=== PATIENT | male | born 1975 | race American Indian/Alaskan Native ===

== ENCOUNTER 2016-10-12 19:00 | Emergency (ER) | payer MEDICAID ==
--- NOTE | 2016-10-12 20:48 | Emergency Department Report ---
ED Psych HPI - General Chief Complaint: Psych Stated Complaint: MH EVAL/DELUSIONAL Time Seen by Provider: 10/12/16 20:47 Source: patient, EMS Mode of arrival: Stretcher - History of Present Illness Initial Comments: Patient is a 41-year-old male past medical history of schizophrenia who presents with suicidal ideation and hallucinations. Patient states that when he was at his psych hospital. He became aggressive towards staff. He states that the staff were [place] in home and did not want him at the hospital. He states that he wants to hurt those who looked down. He is actively hearing voices and he states that he is suicidal. Patient denies ingesting any substances. He states that he once to kill all the people who work at the hospital with his fists - Related Data Home Medications Medication Instructions Recorded Confirmed Last Taken Acetaminophen 650 mg PO Q6H PRN 10/12/16 10/12/16 Unknown Acetaminophen [Acetaminophen 650 mg MD Q8HR PRN 10/12/16 10/12/16 Unknown SUPPOS] Amlodipine Besylate [Norvasc] 5 mg PO DAILY 10/12/16 10/12/16 Unknown AtorvaSTATin [Lipitor] 10 mg PO QHS 10/12/16 10/12/16 Unknown Benztropine [Cogentin] 2 mg PO QHS 10/12/16 10/12/16 Unknown FLUoxetine [PROzac] 20 mg PO QDAY 10/12/16 10/12/16 Unknown Haloperidol Decanoate [Haldol 1.5 ml IM QMONTH 10/12/16 10/12/16 Unknown Decanoate] LORazepam [Ativan] 1 mg PO Q8H PRN 10/12/16 10/12/16 Unknown Lisinopril [Zestril TAB] 10 mg PO QDAY 10/12/16 10/12/16 Unknown Mirtazapine [Remeron] 30 mg PO QHS 10/12/16 10/12/16 Unknown Multivit-Minerals/Ferrous Gluc 9 mg PO BID 10/12/16 10/12/16 Unknown [Centrum Multivit-Mineral Liq] Omeprazole Magnesium [PriLOSEC Otc] 20 mg PO QDAY 10/12/16 10/12/16 Unknown QUEtiapine [SEROquel] 75 mg PO BID 10/12/16 10/12/16 Unknown Quetiapine Fumarate [SEROquel] 150 mg PO QDAY 10/12/16 10/12/16 Unknown Ziprasidone [Geodon] 40 mg PO BID 10/12/16 10/12/16 Unknown clonazePAM [KlonoPIN] 0.5 mg PO BID 10/12/16 10/12/16 Unknown Allergies Allergy/AdvReac Type Severity Reaction Status Date / Time No Known Allergies Allergy Unverified 10/13/16 01:02 ED Review of Systems ROS: Stated complaint: MH EVAL/DELUSIONAL Other details as noted in HPI Constitutional: denies: chills, fever Eyes: denies: eye pain, eye discharge, vision change ENT: denies: ear pain, throat pain Respiratory: denies: cough, shortness of breath, wheezing Cardiovascular: denies: chest pain, palpitations Endocrine: no symptoms reported Gastrointestinal: denies: abdominal pain, nausea, diarrhea Genitourinary: denies: urgency, dysuria Musculoskeletal: denies: back pain, joint swelling, arthralgia Skin: denies: rash, lesions Neurological: denies: headache, weakness, paresthesias Psychiatric: auditory hallucinations, homicidal thoughts, suicidal thoughts. denies: anxiety, depression Hematological/Lymphatic: denies: easy bleeding, easy bruising ED Past Medical Hx - Past Medical History Hx Hypertension: Yes Hx Psychiatric Treatment: Yes (paranoid disorder, anxiety) - Surgical History Past Surgical History?: No - Social History Smoking Status: Current Every Day Smoker Substance Use Type: Alcohol, Cocaine, Other - Medications Home Medications: Home Medications Medication Instructions Recorded Confirmed Last Taken Type Acetaminophen 650 mg PO Q6H PRN 10/12/16 10/12/16 Unknown History Acetaminophen [Acetaminophen 650 mg MD Q8HR PRN 10/12/16 10/12/16 Unknown History SUPPOS] Amlodipine Besylate [Norvasc] 5 mg PO DAILY 10/12/16 10/12/16 Unknown History AtorvaSTATin [Lipitor] 10 mg PO QHS 10/12/16 10/12/16 Unknown History Benztropine [Cogentin] 2 mg PO QHS 10/12/16 10/12/16 Unknown History FLUoxetine [PROzac] 20 mg PO QDAY 10/12/16 10/12/16 Unknown History Haloperidol Decanoate [Haldol 1.5 ml IM QMONTH 10/12/16 10/12/16 Unknown History Decanoate] LORazepam [Ativan] 1 mg PO Q8H PRN 10/12/16 10/12/16 Unknown History Lisinopril [Zestril TAB] 10 mg PO QDAY 10/12/16 10/12/16 Unknown History Mirtazapine [Remeron] 30 mg PO QHS 10/12/16 10/12/16 Unknown History Multivit-Minerals/Ferrous Gluc 9 mg PO BID 10/12/16 10/12/16 Unknown History [Centrum Multivit-Mineral Liq] Omeprazole Magnesium [PriLOSEC Otc] 20 mg PO QDAY 10/12/16 10/12/16 Unknown History QUEtiapine [SEROquel] 75 mg PO BID 10/12/16 10/12/16 Unknown History Quetiapine Fumarate [SEROquel] 150 mg PO QDAY 10/12/16 10/12/16 Unknown History Ziprasidone [Geodon] 40 mg PO BID 10/12/16 10/12/16 Unknown History clonazePAM [KlonoPIN] 0.5 mg PO BID 10/12/16 10/12/16 Unknown History ED Physical Exam - General Limitations: Other General appearance: alert, in no apparent distress - Head Head exam: Present: atraumatic, normocephalic - Eye Eye exam: Present: normal appearance - ENT ENT exam: Present: mucous membranes moist - Neck Neck exam: Present: normal inspection - Respiratory Respiratory exam: Present: normal lung sounds bilaterally. Absent: respiratory distress - Cardiovascular Cardiovascular Exam: Present: regular rate, normal rhythm. Absent: systolic murmur, diastolic murmur, rubs, gallop - GI/Abdominal GI/Abdominal exam: Present: soft, normal bowel sounds - Rectal Rectal exam: Present: deferred - Extremities Exam Extremities exam: Present: normal inspection - Back Exam Back exam: Present: normal inspection - Neurological Exam Neurological exam: Present: alert, oriented X3 - Psychiatric Psychiatric exam: Present: anxious, homicidal ideation, suicidal ideation - Skin Skin exam: Present: warm, dry, intact, normal color. Absent: rash ED Course Vital Signs 10/12/16 10/12/16 10/13/16 19:41 20:40 00:19 Temperature 98.6 F Pulse Rate 114 H 124 H Respiratory 18 18 Rate Blood Pressure 129/85 140/95 Blood Pressure 129/85 [Right] O2 Sat by Pulse 98 98 Oximetry - Reevaluation(s) Reevaluation #1: 10/13/16 03:52 Patient has been evaluated by mental health worker I will place 1013 on patient. ED Medical Decision Making - Lab Data Result diagrams: 10/12/16 21:08 10/12/16 21:08 Lab Results 10/12/16 10/12/16 10/12/16 Range/Units 21:08 21:08 21:08 WBC 11.1 H (4.5-11.0) K/mm3 RBC 4.07 (3.65-5.03) M/mm3 Hgb 12.6 (11.8-15.2) gm/dl Hct 37.7 (35.5-45.6) % MCV 93 (84-94) fl MCH 31 (28-32) pg MCHC 33 (32-34) % RDW 14.5 (13.2-15.2) % Plt Count 189 (140-440) K/mm3 Lymph % (Auto) 23.1 (13.4-35.0) % [place] % (Auto) 12.7 H (0.0-7.3) % Eos % (Auto) 1.4 (0.0-4.3) % Baso % (Auto) 0.7 (0.0-1.8) % Lymph # 2.6 (1.2-5.4) K/mm3 [place] # 1.4 H (0.0-0.8) K/mm3 Eos # 0.2 (0.0-0.4) K/mm3 Baso # 0.1 (0.0-0.1) K/mm3 Seg Neutrophils % 62.1 (40.0-70.0) % Seg Neutrophils # 6.9 (1.8-7.7) K/mm3 Sodium 141 (137-145) mmol/L Potassium 3.9 (3.6-5.0) mmol/L Chloride 102.1 (98-107) mmol/L Carbon Dioxide 26 (22-30) mmol/L Anion Gap 17 mmol/L BUN 16 (9-20) mg/dL Creatinine 0.6 L (0.8-1.5) mg/dL Estimated GFR > 60 ml/min BUN/Creatinine Ratio 26.66 % Glucose 102 H (75-100) mg/dL Calcium 8.3 L (8.4-10.2) mg/dL Total Bilirubin 0.20 (0.1-1.2) mg/dL AST 29 (5-40) units/L ALT 34 (7-56) units/L Alkaline Phosphatase 93 (35-129) units/L Total Protein 6.5 (6.3-8.2) g/dL Albumin 3.7 L (3.9-5) g/dL Albumin/Globulin Ratio 1.3 % Urine Color (Yellow) Urine Turbidity (Clear) Urine pH (5.0-7.0) Ur Specific [place] (1.003-1.030) Urine Protein (Negative) mg/dL Urine Glucose (UA) (Negative) mg/dL Urine Ketones (Negative) mg/dL Urine Blood (Negative) Urine Nitrite (Negative) Urine Bilirubin (Negative) Urine Urobilinogen (<2.0) mg/dL Ur Leukocyte Esterase (Negative) Urine WBC (Auto) (0.0-6.0) /HPF Urine RBC (Auto) (0.0-6.0) /HPF Salicylates < 0.3 L (2.8-20.0) mg/dL Urine Opiates Screen Urine Methadone Screen Acetaminophen (10.0-30.0) ug/mL Ur Barbiturates Screen Ur Phencyclidine Scrn Ur Amphetamines Screen U Benzodiazepines Scrn Urine Cocaine Screen U Marijuana (THC) Screen Drugs of Abuse Note Plasma/Serum Alcohol (0-0.07) gm% 10/12/16 10/12/16 10/12/16 Range/Units 21:08 21:08 21:11 WBC (4.5-11.0) K/mm3 RBC (3.65-5.03) M/mm3 Hgb (11.8-15.2) gm/dl Hct (35.5-45.6) % MCV (84-94) fl MCH (28-32) pg MCHC (32-34) % RDW (13.2-15.2) % Plt Count (140-440) K/mm3 Lymph % (Auto) (13.4-35.0) % [place] % (Auto) (0.0-7.3) % Eos % (Auto) (0.0-4.3) % Baso % (Auto) (0.0-1.8) % Lymph # (1.2-5.4) K/mm3 [place] # (0.0-0.8) K/mm3 Eos # (0.0-0.4) K/mm3 Baso # (0.0-0.1) K/mm3 Seg Neutrophils % (40.0-70.0) % Seg Neutrophils # (1.8-7.7) K/mm3 Sodium (137-145) mmol/L Potassium (3.6-5.0) mmol/L Chloride (98-107) mmol/L Carbon Dioxide (22-30) mmol/L Anion Gap mmol/L BUN (9-20) mg/dL Creatinine (0.8-1.5) mg/dL Estimated GFR ml/min BUN/Creatinine Ratio % Glucose (75-100) mg/dL Calcium (8.4-10.2) mg/dL Total Bilirubin (0.1-1.2) mg/dL AST (5-40) units/L ALT (7-56) units/L Alkaline Phosphatase (35-129) units/L Total Protein (6.3-8.2) g/dL Albumin (3.9-5) g/dL Albumin/Globulin Ratio % Urine Color Straw (Yellow) Urine Turbidity Clear (Clear) Urine pH 7.0 (5.0-7.0) Ur Specific [place] 1.005 (1.003-1.030) Urine Protein <15 mg/dl (Negative) mg/dL Urine Glucose (UA) Neg (Negative) mg/dL Urine Ketones Neg (Negative) mg/dL Urine Blood Neg (Negative) Urine Nitrite Neg (Negative) Urine Bilirubin Neg (Negative) Urine Urobilinogen < 2.0 (<2.0) mg/dL Ur Leukocyte Esterase Neg (Negative) Urine WBC (Auto) < 1.0 (0.0-6.0) /HPF Urine RBC (Auto) 1.0 (0.0-6.0) /HPF Salicylates (2.8-20.0) mg/dL Urine Opiates Screen Urine Methadone Screen Acetaminophen < 15.0 (10.0-30.0) ug/mL Ur Barbiturates Screen Ur Phencyclidine Scrn Ur Amphetamines Screen U Benzodiazepines Scrn Urine Cocaine Screen U Marijuana (THC) Screen Drugs of Abuse Note Plasma/Serum Alcohol < 0.01 (0-0.07) gm% 10/12/16 Range/Units 21:11 WBC (4.5-11.0) K/mm3 RBC (3.65-5.03) M/mm3 Hgb (11.8-15.2) gm/dl Hct (35.5-45.6) % MCV (84-94) fl MCH (28-32) pg MCHC (32-34) % RDW (13.2-15.2) % Plt Count (140-440) K/mm3 Lymph % (Auto) (13.4-35.0) % [place] % (Auto) (0.0-7.3) % Eos % (Auto) (0.0-4.3) % Baso % (Auto) (0.0-1.8) % Lymph # (1.2-5.4) K/mm3 [place] # (0.0-0.8) K/mm3 Eos # (0.0-0.4) K/mm3 Baso # (0.0-0.1) K/mm3 Seg Neutrophils % (40.0-70.0) % Seg Neutrophils # (1.8-7.7) K/mm3 Sodium (137-145) mmol/L Potassium (3.6-5.0) mmol/L Chloride (98-107) mmol/L Carbon Dioxide (22-30) mmol/L Anion Gap mmol/L BUN (9-20) mg/dL Creatinine (0.8-1.5) mg/dL Estimated GFR ml/min BUN/Creatinine Ratio % Glucose (75-100) mg/dL Calcium (8.4-10.2) mg/dL Total Bilirubin (0.1-1.2) mg/dL AST (5-40) units/L ALT (7-56) units/L Alkaline Phosphatase (35-129) units/L Total Protein (6.3-8.2) g/dL Albumin (3.9-5) g/dL Albumin/Globulin Ratio % Urine Color (Yellow) Urine Turbidity (Clear) Urine pH (5.0-7.0) Ur Specific [place] (1.003-1.030) Urine Protein (Negative) mg/dL Urine Glucose (UA) (Negative) mg/dL Urine Ketones (Negative) mg/dL Urine Blood (Negative) Urine Nitrite (Negative) Urine Bilirubin (Negative) Urine Urobilinogen (<2.0) mg/dL Ur Leukocyte Esterase (Negative) Urine WBC (Auto) (0.0-6.0) /HPF Urine RBC (Auto) (0.0-6.0) /HPF Salicylates (2.8-20.0) mg/dL Urine Opiates Screen Presumptive negative Urine Methadone Screen Presumptive negative Acetaminophen (10.0-30.0) ug/mL Ur Barbiturates Screen Presumptive negative Ur Phencyclidine Scrn Presumptive negative Ur Amphetamines Screen Presumptive negative U Benzodiazepines Scrn Presumptive negative Urine Cocaine Screen Presumptive negative U Marijuana (THC) Screen Presumptive negative Drugs of Abuse Note Disclamer Plasma/Serum Alcohol (0-0.07) gm% - Medical Decision Making Chief medical diagnosis: Psychosis Differential medical diagnosis: Substance-induced mood disorder, schizoaffective disorder, depression, metabolic abnormality Urinalysis, urine drug screen, CBC, CMP and mental health settlement technician H and is having a psychotic episode he will need inpatient psychiatric admission. I will I'll sign a 1013 on the patient. Discussed with mental health worker. Critical care attestation.: If time is entered above; I have spent that time in minutes in the direct care of this critically ill patient, excluding procedure time. ED Disposition Clinical Impression: Homicidal ideation, Psychotic episode, Schizophrenia, acute undifferentiated Disposition: [id number]/TX-65 PSY HOSP/PSY UNIT Is pt being admited?: No Does the pt Need Aspirin: No Condition: Stable Referrals: MAURY MEJIA MD [Primary Care Provider] - 3-5 Days
[2016-10-12 21:22] LABS: Urine Drugs of Abuse Note Disclamer
[2016-10-12 21:27] LABS: Basophils % (Auto) 0.7 % (0.0-1.8); Eosinophils % (Auto) 1.4 % (0.0-4.3); Hematocrit 37.7 % (35.5-45.6); Hemoglobin 12.6 gm/dl (11.8-15.2); Mean Corpuscular HGB Conc 33 % (32-34); Mean Corpuscular Hemoglobin 31 pg (28-32); Mean Corpuscular Volume 93 fl (84-94); Platelet Count 189 K/mm3 (140-440); Red Blood Count 4.07 M/mm3 (3.65-5.03); Red Cell Distribution Width 14.5 % (13.2-15.2); White Blood Count 11.1 K/mm3 (4.5-11.0)
[2016-10-12 21:29] LABS: Bilirubin,Urine NEG (Negative); Blood,Urine NEG (Negative); Ketones,Urine NEG (Negative); Leukocyte Esterase,Urine NEG (Negative); Nitrite,Urine NEG (Negative); Protein,Urine <15 mg/dL mg/dL (Negative); Urobilinogen,Urine < 2.0 mg/dL (<2.0); WBC,Urine < 1.0 /HPF (0.0-6.0)
[2016-10-12 21:50] LABS: Alanine Aminotransferase 34 units/L (7-56); Albumin 3.7 g/dL (3.9-5); Albumin/Globulin Ratio 1.3 %; Alkaline Phosphatase 93 units/L (35-129); Anion Gap 17 mmol/L; BUN/Creatinine Ratio 26.66; Blood Urea Nitrogen 16 mg/dL (9-20); Calcium 8.3 mg/dL (8.4-10.2); Carbon Dioxide 26 mmol/L (22-30); Chloride 102.1 mmol/L (98-107); Glucose 102 mg/dL (75-100); Potassium 3.9 mmol/L (3.6-5.0); Sodium 141 mmol/L (137-145); Total Protein 6.5 g/dL (6.3-8.2)
[2016-10-12] MEDS ORDERED: ALUM-MAG HYDROX-SIMETH 200-200-20MG/5ML PO PRN (23:00)
[2016-10-12] MEDS ORDERED: TYLENOL PO PRN (23:00)
[2016-10-12] MEDS ORDERED: MILK OF MAGNESIA PO PRN (23:00)
[2016-10-12] MEDS ORDERED: HALDOL PO ONE (23:06)
[2016-10-13] MEDS ORDERED: ZESTRIL PO ONE (00:03)
[2016-10-13] MEDS ORDERED: GEODON PO PRN (00:06)
[2016-10-13] MEDS: NORVASC PO SCH (09:51)
[2016-10-14] MEDS: NORVASC PO SCH (10:37)
--- NOTE | 2016-10-14 16:27 | Consultation ---
History of Present Illness - Reason for Consult Consult date: 10/14/16 Reason for consult: Mental Health Evaluation Requesting physician: GISEL ODELL - Chief Complaint Chief complaint: "What you want" - History of Present Psychiatric Illness Patient is a 41-year-old male past medical history of schizophrenia who presents with suicidal ideation and hallucinations. Today patient is calm, but disorganized during the assessment. When asked questions about why he is admitted to [facility] he would mumble an answer that could not be understood. He stated that the "other people" would understand what he was saying. He could not tell me who are the "other people." When asked about being suicidal he stated "I don't know." He had to be redirected multiple times during the conversation, possibly responding to some type of stimuli. He would pause for seconds before answering questions. Patient is a poor historian. Medications and Allergies Allergies Allergy/AdvReac Type Severity Reaction Status Date / Time No Known Allergies Allergy Unverified 10/13/16 01:02 Home Medications Medication Instructions Recorded Confirmed Last Taken Type Acetaminophen 650 mg PO Q6H PRN 10/12/16 10/12/16 Unknown History Acetaminophen [Acetaminophen 650 mg SC Q8HR PRN 10/12/16 10/12/16 Unknown History SUPPOS] Amlodipine Besylate [Norvasc] 5 mg PO DAILY 10/12/16 10/12/16 Unknown History AtorvaSTATin [Lipitor] 10 mg PO QHS 10/12/16 10/12/16 Unknown History Benztropine [Cogentin] 2 mg PO QHS 10/12/16 10/12/16 Unknown History FLUoxetine [PROzac] 20 mg PO QDAY 10/12/16 10/12/16 Unknown History Haloperidol Decanoate [Haldol 1.5 ml IM QMONTH 10/12/16 10/12/16 Unknown History Decanoate] LORazepam [Ativan] 1 mg PO Q8H PRN 10/12/16 10/12/16 Unknown History Lisinopril [Zestril TAB] 10 mg PO QDAY 10/12/16 10/12/16 Unknown History Mirtazapine [Remeron] 30 mg PO QHS 10/12/16 10/12/16 Unknown History Multivit-Minerals/Ferrous Gluc 9 mg PO BID 10/12/16 10/12/16 Unknown History [Centrum Multivit-Mineral Liq] Omeprazole Magnesium [PriLOSEC Otc] 20 mg PO QDAY 10/12/16 10/12/16 Unknown History QUEtiapine [SEROquel] 75 mg PO BID 10/12/16 10/12/16 Unknown History Quetiapine Fumarate [SEROquel] 150 mg PO QDAY 10/12/16 10/12/16 Unknown History Ziprasidone [Geodon] 40 mg PO BID 10/12/16 10/12/16 Unknown History clonazePAM [KlonoPIN] 0.5 mg PO BID 10/12/16 10/12/16 Unknown History Active Meds: Active Medications Acetaminophen (Tylenol) 650 mg PO Q4HR PRN PRN Reason: Pain MILD(1-3)/Fever >100.5/PADRON Last Admin: 10/14/16 04:40 Dose: 650 mg Al Hydrox/Mg Hydrox/Simethicone (Alum-Mag Hydrox-Simeth 151-179-67oh/5ml) 30 ml PO Q4HR PRN PRN Reason: Indigestion Amlodipine Besylate (Norvasc) 5 mg PO DAILY VALDEMAR Last Admin: 10/14/16 10:37 Dose: 5 mg Magnesium Hydroxide (Milk Of Magnesia) 30 ml PO Q12HR PRN PRN Reason: Constipation Ziprasidone (Geodon) 20 mg PO ONCE PRN PRN Reason: Agitation Last Admin: 10/13/16 00:19 Dose: 20 mg Past psychiatric history - Past Medical History Past Medical History: other (unable to obtain) Past Surgical History: Other (unable to obtain) - past Psychiatric treatment and history psychiatric treatment history: unable to obtain a psy hx or fam psy hx. Patient is psychotic. - Social History Social history: other (unable to obtain) Mental Status Exam - Vital signs Last Vital Signs Temp 98.6 F 10/14/16 10:39 Pulse 101 H 10/14/16 10:39 Resp 18 10/14/16 11:09 BP 125/82 10/14/16 10:39 Pulse Ox 100 10/14/16 11:09 - Exam Narrative exam: ROS: (+) psychosis MSE: Appearance: calm, cooperative Behavior: regular eye contact Speech: regular rate and tone Mood: "why you ask" Affect: labile Thought Process: tangential Thought Content: denies SI/HI's and VH's Motor Activity: ambulatory Cognition: A/Ox 3 Insight: limited Judgment: limited Results Result Diagrams: 10/12/16 21:08 10/12/16 21:08 All other labs normal. Assessment and Plan Assessment and plan: Impression: Unspecified Psychosis. Today patient is calm, but disorganized during the assessment. Patient mumbling answers when asked questions. DDx: Schizophrenia Recommendation/Plan: Continue 1013. Gather collateral to determine proper treatment and dispo.
[2016-10-14] MEDS ORDERED: HALDOL ONE (22:30)
[2016-10-14] MEDS ORDERED: ATIVAN ONE (22:30)
[2016-10-14] MEDS ORDERED: ATIVAN IM ONE (22:54)
[2016-10-14] MEDS ORDERED: HALDOL IM ONE (22:55)
[2016-10-15] MEDS: NORVASC PO SCH (10:19)
[2016-10-15 11:01] VITALS: BP 147/88
--- NOTE | 2016-10-15 13:28 | Progress Note ---
Subjective - Reason for Consult Consult date: 10/15/16 Reason for consult: Psychiatry Follow-up - Chief Complaint Chief complaint: "Lenin" Patient is a 41-year-old male past medical history of schizophrenia who presents with suicidal ideation and hallucinations. Today patient was calm and cooperative during the assessment. After 24 hours patient admitted that he was "mad" yesterday and was looking for attention. He stated that he enjoy trying to speak vietnamese during these times. Yesterday, at times the patient would mumble his answers when asked a question (possibly trying to speak vietnamese). Patient was observed completing his ADL's and eating his breakfast today. He was able to tell me his current location, , and where his skilled nursing is located ([facility]). He denies SI/HI's, AVH's, and depression. He stated that he would like to return to his skilled nursing. Mental Status Exam - Vital signs Last Vital Signs Temp 98.5 F 10/15/16 11:08 Pulse 93 H 10/15/16 11:08 Resp 16 10/15/16 11:08 BP 147/88 10/15/16 11:08 Pulse Ox 99 10/14/16 17:54 - Exam Narrative exam: MSE: Appearance: calm, cooperative Behavior: regular eye contact Speech: regular rate and tone Mood: "well" Affect: congruent to mood Thought Process: circumstantial Thought Content: denies SI/HI's and AVH's Motor Activity: ambulatory Cognition: A/Ox 3 Insight: variable Judgment: variable Assessment and Plan Impression: Historical Dx: Schizophrenia. Today patient is calm and cooperative during the assessment. Patient answering all questions in a logical manner. Recommendation/Plan: Rescind 1013. Patient can return to his skilled nursing. Patient's medications are managed by the medical staff at the skilled nursing.
--- NOTE | 2016-10-15 15:04 | Emergency Department Report ---
ED Psych HPI - General Chief Complaint: Psych Stated Complaint: MH EVAL/DELUSIONAL Time Seen by Provider: 10/12/16 20:47 Source: patient, EMS Mode of arrival: Stretcher - Related Data Home Medications Medication Instructions Recorded Confirmed Last Taken Acetaminophen 650 mg PO Q6H PRN 10/12/16 10/12/16 Unknown Acetaminophen [Acetaminophen 650 mg [place] Q8HR PRN 10/12/16 10/12/16 Unknown SUPPOS] Amlodipine Besylate [Norvasc] 5 mg PO DAILY 10/12/16 10/12/16 Unknown AtorvaSTATin [Lipitor] 10 mg PO QHS 10/12/16 10/12/16 Unknown Benztropine [Cogentin] 2 mg PO QHS 10/12/16 10/12/16 Unknown FLUoxetine [PROzac] 20 mg PO QDAY 10/12/16 10/12/16 Unknown Haloperidol Decanoate [Haldol 1.5 ml IM QMONTH 10/12/16 10/12/16 Unknown Decanoate] LORazepam [Ativan] 1 mg PO Q8H PRN 10/12/16 10/12/16 Unknown Lisinopril [Zestril TAB] 10 mg PO QDAY 10/12/16 10/12/16 Unknown Mirtazapine [Remeron] 30 mg PO QHS 10/12/16 10/12/16 Unknown Multivit-Minerals/Ferrous Gluc 9 mg PO BID 10/12/16 10/12/16 Unknown [Centrum Multivit-Mineral Liq] Omeprazole Magnesium [PriLOSEC Otc] 20 mg PO QDAY 10/12/16 10/12/16 Unknown QUEtiapine [SEROquel] 75 mg PO BID 10/12/16 10/12/16 Unknown Quetiapine Fumarate [SEROquel] 150 mg PO QDAY 10/12/16 10/12/16 Unknown Ziprasidone [Geodon] 40 mg PO BID 10/12/16 10/12/16 Unknown clonazePAM [KlonoPIN] 0.5 mg PO BID 10/12/16 10/12/16 Unknown Allergies Allergy/AdvReac Type Severity Reaction Status Date / Time No Known Allergies Allergy Verified 10/14/16 22:27 ED Review of Systems ROS: Stated complaint: MH EVAL/DELUSIONAL Other details as noted in HPI Constitutional: denies: chills, fever Eyes: denies: eye pain, eye discharge, vision change ENT: denies: ear pain, throat pain Respiratory: denies: cough, shortness of breath, wheezing Cardiovascular: denies: chest pain, palpitations Endocrine: no symptoms reported Gastrointestinal: denies: abdominal pain, nausea, diarrhea Genitourinary: denies: urgency, dysuria Musculoskeletal: denies: back pain, joint swelling, arthralgia Skin: denies: rash, lesions Neurological: denies: headache, weakness, paresthesias Psychiatric: auditory hallucinations, homicidal thoughts, suicidal thoughts. denies: anxiety, depression Hematological/Lymphatic: denies: easy bleeding, easy bruising ED Past Medical Hx - Past Medical History Hx Hypertension: Yes Hx Psychiatric Treatment: Yes (paranoid disorder, anxiety) - Surgical History Past Surgical History?: No - Social History Smoking Status: Current Every Day Smoker Substance Use Type: Alcohol, Cocaine, Other - Medications Home Medications: Home Medications Medication Instructions Recorded Confirmed Last Taken Type Acetaminophen 650 mg PO Q6H PRN 10/12/16 10/12/16 Unknown History Acetaminophen [Acetaminophen 650 mg [place] Q8HR PRN 10/12/16 10/12/16 Unknown History SUPPOS] Amlodipine Besylate [Norvasc] 5 mg PO DAILY 10/12/16 10/12/16 Unknown History AtorvaSTATin [Lipitor] 10 mg PO QHS 10/12/16 10/12/16 Unknown History Benztropine [Cogentin] 2 mg PO QHS 10/12/16 10/12/16 Unknown History FLUoxetine [PROzac] 20 mg PO QDAY 10/12/16 10/12/16 Unknown History Haloperidol Decanoate [Haldol 1.5 ml IM QMONTH 10/12/16 10/12/16 Unknown History Decanoate] LORazepam [Ativan] 1 mg PO Q8H PRN 10/12/16 10/12/16 Unknown History Lisinopril [Zestril TAB] 10 mg PO QDAY 10/12/16 10/12/16 Unknown History Mirtazapine [Remeron] 30 mg PO QHS 10/12/16 10/12/16 Unknown History Multivit-Minerals/Ferrous Gluc 9 mg PO BID 10/12/16 10/12/16 Unknown History [Centrum Multivit-Mineral Liq] Omeprazole Magnesium [PriLOSEC Otc] 20 mg PO QDAY 10/12/16 10/12/16 Unknown History QUEtiapine [SEROquel] 75 mg PO BID 10/12/16 10/12/16 Unknown History Quetiapine Fumarate [SEROquel] 150 mg PO QDAY 10/12/16 10/12/16 Unknown History Ziprasidone [Geodon] 40 mg PO BID 10/12/16 10/12/16 Unknown History clonazePAM [KlonoPIN] 0.5 mg PO BID 10/12/16 10/12/16 Unknown History ED Physical Exam - General Limitations: Other General appearance: alert, in no apparent distress ED Course Vital Signs 10/12/16 10/12/16 10/13/16 19:41 20:40 00:19 Temperature 98.6 F Pulse Rate 114 H 124 H Respiratory 18 18 Rate Blood Pressure 129/85 140/95 Blood Pressure 129/85 [Right] O2 Sat by Pulse 98 98 Oximetry 10/13/16 10/13/16 10/13/16 09:36 09:51 18:20 Temperature 98.6 F Pulse Rate 90 101 H 88 Respiratory 18 Rate Blood Pressure Blood Pressure 134/75 [Right] O2 Sat by Pulse 100 Oximetry 10/13/16 10/14/16 10/14/16 21:46 03:43 10:37 Temperature 98 F 98 F Pulse Rate 100 H 88 101 H Respiratory 20 18 Rate Blood Pressure 125/82 Blood Pressure 149/101 127/88 [Right] O2 Sat by Pulse 98 100 Oximetry 10/14/16 10/14/16 10/14/16 10:39 11:09 17:54 Temperature 98.6 F 99.1 F Pulse Rate 101 H 93 H Respiratory 18 18 16 Rate Blood Pressure Blood Pressure 125/82 151/97 [Right] O2 Sat by Pulse 100 99 Oximetry 10/15/16 10/15/16 10/15/16 10:02 10:19 11:08 Temperature 98.5 F Pulse Rate 93 H 93 H Respiratory 16 16 Rate Blood Pressure 147/88 Blood Pressure 147/88 [Right] O2 Sat by Pulse Oximetry ED Medical Decision Making - Lab Data Result diagrams: 10/12/16 21:08 10/12/16 21:08 - Medical Decision Making Patient cleared by psychiatry. Patient is to continue his daily Zoloft. He was given outpatient resources for the [facility]. He completed a safety contract with the psychiatrist. Critical care attestation.: If time is entered above; I have spent that time in minutes in the direct care of this critically ill patient, excluding procedure time. ED Disposition Clinical Impression: Schizophrenia, acute undifferentiated Disposition: DC-01 TO HOME OR SELFCARE Is pt being admited?: No Condition: Stable Instructions: Suicide Prevention for Adults (ED), Schizophrenia (ED) Referrals: MAURY MEJIA MD [Primary Care Provider] - 3-5 Days
== END 2016-10-15 17:53 | disposition home or self-care (01) ==
LOC: EEVIPCON 19:00 → ED 19:00
DX: F20.9 Schizophrenia, unspecified (principal); I10 Essential (primary) hypertension; F22 Delusional disorders; F41.9 Anxiety disorder, unspecified; F17.200 Nicotine dependence, unspecified, uncomplicated; F14.90 Cocaine use, unspecified, uncomplicated
CPT/HCPCS: 36415; 80053; 80307; 81001; 85025; 96372; 99285; G0480; J1630; J2060; 80320

== ENCOUNTER 2018-03-14 11:03 | Emergency (ER) | payer MEDICAID ==
[2018-03-14] MEDS ORDERED: NACL 0.9% 1000 ML 1,000 ML IV ONE ×2 (11:34→13:31)
--- NOTE | 2018-03-14 11:35 | Emergency Department Report ---
ED General Adult HPI - General Chief complaint: Medical Clearance Stated complaint: DIFFICULTY BREATHING Time Seen by Provider: 03/14/18 11:24 Source: patient, EMS (ems notes not available at time of chart dictation), RN notes reviewed, old records reviewed Mode of arrival: Stretcher Limitations: Other (the patient is a poor historian) - History of Present Illness Initial comments: This is a 42-year-old gentleman. The patient was apparently brought to the emergency room by a local [facility]. As per verbal report from nursing staff, who in turn received report from EMS, the patient apparently today had a mechanical trip and fall. He was complaining of foot pain, and it is unknown if he hit his head. Apparently, as per verbal report from EMS, patient was breathing rapidly, and had reported oxygen saturation of 89% in the field. [facility] ems documentation is not currently available for collateral information or review. EMS is not currently available to speak directly to. The [facility] the patient resides does not have a phone number when they can be contacted to obtain collateral information. In the emergency room, the patient denies complaints. The patient is not able to offer collateral information. He does indicate that he is not having a headache, but he is not having neck pain, he denies chest pain, abdominal pain, shortness of breath. He denies urinary symptoms. He denies homicidality, suicidality. -: unknown Quality: other Consistency: other Improves with: other Worsens with: other - Related Data Home Medications Medication Instructions Recorded Confirmed Last Taken ALBUTEROL NEB's [Proventil] 2.5 mg IH TID PRN 10/11/17 10/11/17 Unknown Acetaminophen [Tylenol] 325 mg PO Q6HR PRN 10/11/17 10/11/17 Unknown Ciclopirox 0.77% (Nf) [Loprox 10 applic TP DAILY 10/11/17 10/11/17 Unknown 0.77% (Nf)] Citalopram [celeXA] 20 mg PO QDAY 10/11/17 10/11/17 10/10/17 Guaifen/Dextromethorphan/PE 15 ml PO Q6HR PRN 10/11/17 10/11/17 Unknown [Robitussin Cough-Cold Cf Liq] Ipratropium/Albuterol Sulfate 1 ampul IH Q6HR 10/11/17 10/11/17 Unknown [DUONEB *Not for PRN Use*] Melatonin 3 mg PO QHS 10/11/17 10/11/17 10/10/17 Mirtazapine [Remeron] 15 mg PO QHS 10/11/17 10/11/17 10/10/17 Omeprazole Magnesium [PriLOSEC Otc] 20 mg PO QDAY 10/11/17 10/11/17 10/10/17 levETIRAcetam [Keppra TAB] 1,000 mg PO BID 10/11/17 10/11/17 10/10/17 Previous Rx's Medication Instructions Recorded Last Taken Type Divalproex Sodium [Depakote] 500 mg PO BID #30 tablet. 10/17/17 Unknown Rx OLANZapine [Zyprexa] 10 mg PO QHS #20 tablet 10/17/17 Unknown Rx busPIRone [Buspar] 5 mg PO BID #20 tab 10/17/17 Unknown Rx Allergies Allergy/AdvReac Type Severity Reaction Status Date / Time Iodine and Iodide Containing Allergy Hives Verified 10/11/17 01:42 Produc Sulfa (Sulfonamide Allergy Hives Verified 10/11/17 01:42 Antibiotics) sulfasalazine Allergy Hives Verified 10/11/17 01:42 dye Allergy Hives Uncoded 10/11/17 01:42 lodine Allergy Hives Uncoded 10/11/17 01:42 ED Review of Systems ROS: Stated complaint: DIFFICULTY BREATHING Other details as noted in HPI Comment: Unobtainable due to pts medical conditions (patient disorganized and is a poor historian) Constitutional: denies: fever Respiratory: denies: shortness of breath Cardiovascular: denies: chest pain Gastrointestinal: denies: abdominal pain Musculoskeletal: other (at one point during his history, complains of bilateral toe pain) Neurological: confusion Psychiatric: anxiety. denies: homicidal thoughts, suicidal thoughts ED Past Medical Hx - Past Medical History Hx Hypertension: Yes Hx Psychiatric Treatment: Yes (paranoid disorder, anxiety) - Social History Smoking Status: Current Every Day Smoker Substance Use Type: Alcohol, Cocaine, Other - Medications Home Medications: Home Medications Medication Instructions Recorded Confirmed Last Taken Type ALBUTEROL NEB's [Proventil] 2.5 mg IH TID PRN 10/11/17 10/11/17 Unknown History Acetaminophen [Tylenol] 325 mg PO Q6HR PRN 10/11/17 10/11/17 Unknown History Ciclopirox 0.77% (Nf) [Loprox 10 applic TP DAILY 10/11/17 10/11/17 Unknown History 0.77% (Nf)] Citalopram [celeXA] 20 mg PO QDAY 10/11/17 10/11/17 10/10/17 History Guaifen/Dextromethorphan/PE 15 ml PO Q6HR PRN 10/11/17 10/11/17 Unknown History [Robitussin Cough-Cold Cf Liq] Ipratropium/Albuterol Sulfate 1 ampul IH Q6HR 10/11/17 10/11/17 Unknown History [DUONEB *Not for PRN Use*] Melatonin 3 mg PO QHS 10/11/17 10/11/17 10/10/17 History Mirtazapine [Remeron] 15 mg PO QHS 10/11/17 10/11/17 10/10/17 History Omeprazole Magnesium [PriLOSEC Otc] 20 mg PO QDAY 10/11/17 10/11/17 10/10/17 History levETIRAcetam [Keppra TAB] 1,000 mg PO BID 10/11/17 10/11/17 10/10/17 History Divalproex Sodium [Depakote] 500 mg PO BID #30 tablet.dr 10/17/17 Unknown Rx OLANZapine [Zyprexa] 10 mg PO QHS #20 tablet 10/17/17 Unknown Rx busPIRone [Buspar] 5 mg PO BID #20 tab 10/17/17 Unknown Rx ED Physical Exam - General Limitations: Other (patient is disorganized and is a poor historian) General appearance: alert, in no apparent distress - Head Head exam: Present: atraumatic, normocephalic - Eye Eye exam: Present: normal appearance, EOMI, other (visual acuity intact to finger counting, color perception.). Absent: nystagmus - ENT ENT exam: Present: normal exam, normal orophraynx, mucous membranes moist, normal external ear exam - Neck Neck exam: Present: normal inspection, full ROM. Absent: tenderness, meningismus - Respiratory Respiratory exam: Present: normal lung sounds bilaterally. Absent: respiratory distress, wheezes, rales, rhonchi, stridor, chest wall tenderness, accessory muscle use, decreased breath sounds - Cardiovascular Cardiovascular Exam: Present: regular rate, normal rhythm, normal heart sounds. Absent: bradycardia, tachycardia, irregular rhythm, systolic murmur, diastolic murmur, rubs, gallop - GI/Abdominal GI/Abdominal exam: Present: soft. Absent: distended, tenderness, guarding, rebound, rigid, pulsatile mass - Rectal Rectal exam: Present: deferred - Extremities Exam Extremities exam: Present: normal inspection, pedal edema, other (2+ pulses noted in the bilateral upper, lower extremities. Compartments soft. No long bony tenderness. The pelvis is stable.). Absent: calf tenderness - Back Exam Back exam: Present: normal inspection, full ROM. Absent: tenderness, CVA tenderness (R), paraspinal tenderness, vertebral tenderness - Neurological Exam Neurological exam: Present: alert, other (Extraocular movements intact. Tongue midline. No facial droop. Facial sensation intact to light touch in the V1, V2, V3 distribution bilaterally. 5 and 5 strength in 4 extremities.. Sensation is intact to light touch in 4 extremities.) - Psychiatric Psychiatric exam: Present: anxious. Absent: homicidal ideation, suicidal ideation - Skin Skin exam: Present: warm, dry, intact, normal color. Absent: rash ED Course Vital Signs 03/14/18 03/14/18 03/14/18 11:39 13:03 16:30 Temperature 98.2 F 98.6 F Pulse Rate 98 H 87 78 Respiratory 14 18 Rate Blood Pressure 131/85 Blood Pressure 123/92 134/87 [Left] O2 Sat by Pulse 99 100 100 Oximetry 03/14/18 03/14/18 17:28 18:30 Temperature 99.1 F Pulse Rate 88 94 H Respiratory 20 18 Rate Blood Pressure Blood Pressure 140/88 128/81 [Left] O2 Sat by Pulse 100 100 Oximetry - Reevaluation(s) Reevaluation #1: 03/14/18 13:00 Differential diagnosis, including not limited to: Medical clearance, muscular sprain, muscular strain, intracranial injury, pneumonia, Gen. medical evaluation Assessment and plan: 42-year-old gentleman who is disorganized, but not homicidal, not suicidal, pleasant, calm and cooperative, who resides [facility] a [facility], with a possible reported history of falling, or near fall. Objectively speaking, the patient is afebrile, with reassuring vital signs, and on my physical exam, breathing 14-16 breaths per minute. He is not hypoxic, he is not tachycardic, his x-ray of the chest is unremarkable. His physical exam is otherwise unremarkable. He does not meet 1013 criteria, and currently lives in a personal penit[facility]. Screening laboratory studies unremarkable, noncontrast CT scan of the brain is negative for acute disease, x-ray of the chest negative for acute disease, and x-ray of the bilateral feet negative for acute disease. The does not appear to be an emergent medical condition present at this time. The patient is medically suitable to be discharged to follow up with an outpatient primary care doctor. 03/14/18 13:02 Reevaluation #2: 03/14/18 13:31 X-ray the chest is negative for acute disease. CT scan of the brain is negative for acute disease. Acute sinusitis suspected. Patient does not endorse any complaints of facial pain. He may take [id number] medications as needed for this. Creatinine kinase over 4000. Renal function within normal limits. We will give additional fluids, and then recheck a creatinine kinase. Reevaluation #3: 03/14/18 16:33 The patient is resting comfortably Reevaluation #4: 03/14/18 19:24 Patient resting comfortably in stretcher for hours without clinical dec ompensation. No active arrhythmias or episodes of hypotension. Creatinine kinase is down trending, and patient has received additional fluids. With a creatinine kinase of less than 5000, with normal renal function, patient does not meet the definition criteria of rhabdomyolysis. Consulted Hospital physician, Dr. Carolin Hopper, who advises discharge, and indicates patient does not meet admission criteria, which I also agree with. The patient is medically suitable to be discharged, and he can have a repeat laboratory checkup in 2-3 days for repeat evaluation. ED Medical Decision Making - Lab Data Result diagrams: 03/14/18 11:44 03/14/18 11:44 Vital Signs 03/14/18 11:39 Temperature 98.2 F Pulse Rate 98 H Blood Pressure 131/85 O2 Sat by Pulse 99 Oximetry Lab Results 03/14/18 03/14/18 03/14/18 Range/Units 11:44 11:44 11:44 WBC 9.5 (4.5-11.0) K/mm3 RBC 4.68 (3.65-5.03) M/mm3 Hgb 14.7 (11.8-15.2) gm/dl Hct 43.5 (35.5-45.6) % MCV 93 (84-94) fl MCH 31 (28-32) pg MCHC 34 (32-34) % RDW 13.5 (13.2-15.2) % Plt Count 272 (140-440) K/mm3 PT 13.8 (12.2-14.9) Sec. INR 1.02 (0.87-1.13) Sodium 137 (137-145) mmol/L Potassium 4.1 (3.6-5.0) mmol/L Chloride 98.8 (98-107) mmol/L Carbon Dioxide 22 (22-30) mmol/L Anion Gap 20 mmol/L BUN 19 (9-20) mg/dL Creatinine 1.2 (0.8-1.5) mg/dL Estimated GFR > 60 ml/min BUN/Creatinine Ratio 16 % Glucose 95 (75-100) mg/dL Calcium 9.3 (8.4-10.2) mg/dL TSH (0.270-4.200) mlU/mL Salicylates (2.8-20.0) mg/dL Acetaminophen (10.0-30.0) ug/mL 03/14/18 03/14/18 03/14/18 Range/Units 11:44 11:44 11:53 WBC (4.5-11.0) K/mm3 RBC (3.65-5.03) M/mm3 Hgb (11.8-15.2) gm/dl Hct (35.5-45.6) % MCV (84-94) fl MCH (28-32) pg MCHC (32-34) % RDW (13.2-15.2) % Plt Count (140-440) K/mm3 PT (12.2-14.9) Sec. INR (0.87-1.13) Sodium (137-145) mmol/L Potassium (3.6-5.0) mmol/L Chloride (98-107) mmol/L Carbon Dioxide (22-30) mmol/L Anion Gap mmol/L BUN (9-20) mg/dL Creatinine (0.8-1.5) mg/dL Estimated GFR ml/min BUN/Creatinine Ratio % Glucose (75-100) mg/dL Calcium (8.4-10.2) mg/dL TSH 1.790 (0.270-4.200) mlU/mL Salicylates < 0.3 L (2.8-20.0) mg/dL Acetaminophen < 5.0 L (10.0-30.0) ug/mL - EKG Data -: EKG Interpreted by Me EKG shows normal: sinus rhythm Rate: normal - EKG Data When compared to previous EKG there are: previous EKG unavailable 03/14/18 13:04 Sinus, 82 bpm, normal axis, normal intervals, motion artifact, left ventricular voltage, early repolarization, abnormal EKG, this is not consistent with an ST elevation myocardial infarction. - Radiology Data Radiology results: pending, report reviewed, image reviewed interpreted by me: X-ray the chest negative for acute disease. X-ray of the bilateral feet negative for acute disease. Critical care attestation.: If time is entered above; I have spent that time in minutes in the direct care of this critically ill patient, excluding procedure time. ED Disposition Clinical Impression: History of fall, Elevated creatine kinase Disposition: DC/TX-70 ANOTHER TYPE HLTHCARE Is pt being admited?: No Does the pt Need Aspirin: No Condition: Good Additional Instructions: Follow-up with your primary care doctor within the next 3-4 weeks. Return to the ER right away with no pain, worsened pain, migration of pain, pr ojectile vomiting, change in mental status, confusion, inability to speak, inability to breathe, new, worsening or different symptoms. Hold Zyprexa for the next 48-72 hours, and follow-up in 2-3 days for repeat checkup/evaluation, to have renal function rechecked, and creatinine kinase level rechecked. Avoid strenuous physical activities. Referrals: DEVANTE NOLASCO MD [Primary Care Provider] - 3-5 Days
[2018-03-14 12:11] LABS: Hematocrit 43.5 % (35.5-45.6); Hemoglobin 14.7 gm/dl (11.8-15.2); Mean Corpuscular HGB Conc 34 % (32-34); Mean Corpuscular Volume 93 fl (84-94); Platelet Count 272 K/mm3 (140-440); Red Blood Count 4.68 M/mm3 (3.65-5.03); Red Cell Distribution Width 13.5 % (13.2-15.2)
[2018-03-14 12:25] LABS: BUN/Creatinine Ratio 16; Blood Urea Nitrogen 19 mg/dL (9-20); Calcium 9.3 mg/dL (8.4-10.2)
[2018-03-14 12:26] LABS: Hemolysis Index 2
--- NOTE | 2018-03-14 12:45 | XRay Report ---
FINAL REPORT EXAM: XR FOOT BILAT 2V HISTORY: fall foot pain COMPARISON: None. TECHNIQUE: Four views of the left foot FINDINGS: There is normal alignment without acute fracture or dislocation. The joint spaces are preserved. The overlying soft tissues are intact IMPRESSION: No acute bony abnormality of the left foot.
[2018-03-14 12:58] LABS: INR 1.02 (0.87-1.13)
--- NOTE | 2018-03-14 13:06 | XRay Report ---
FINAL REPORT EXAM: XR CHEST 1V AP HISTORY: hx of dyspnea COMPARISON: None. TECHNIQUE: Single frontal view of the chest FINDINGS: The cardiomediastinal silhouette is normal in appearance. The lungs are clear without focal consolidation. There is no pleural effusion or pneumothorax. There is no acute soft tissue or osseous abnormality. IMPRESSION: No acute cardiopulmonary disease.
--- NOTE | 2018-03-14 13:13 | Cat Scan Report ---
FINAL REPORT EXAM: CT HEAD/BRAIN WO CON HISTORY: fall confusied COMPARISON: None. TECHNIQUE: Multiple contiguous axial images were obtained from the skullbase to the vertex without a dministration of IV contrast. FINDINGS: There is mild cerebral cortical atrophy, somewhat advanced for the patient's age. There is no parench ymal hemorrhage or extra-axial fluid collection. There is no mass or mass effect. There is no acute t erritorial infarct. The ventricles are midline. The subarachnoid spaces and basilar cisterns are sourav r. There is no skull fracture. There is opacification of the right maxillary sinus with an internal a ir-fluid level concerning for acute sinusitis. There also mucosal thickening of the bilateral ethmoid sinuses and left sphenoid sinus. IMPRESSION: No acute intracranial abnormality. Air-fluid level within the right maxillary sinus concerning for acute sinusitis. Mild rule cortical atrophy, somewhat advanced for the patient's age.
[2018-03-14] MEDS ORDERED: NACL 0.9% 1000 ML 2,000 ML IV ONE ×2 (13:30→17:47)
[2018-03-15 13:59] VITALS: BP 133/78
== END 2018-03-14 21:32 | disposition other institution (70) ==
LOC: ED 11:03
DX: F20.0 Paranoid schizophrenia (principal); F41.9 Anxiety disorder, unspecified; F17.200 Nicotine dependence, unspecified, uncomplicated; R74.8 Abnormal levels of other serum enzymes; Z91.041 Radiographic dye allergy status; Z88.2 Allergy status to sulfonamides
CPT/HCPCS: 36415; 70450; 71045; 73620; 80048; 80164; 82550; 84443; 85027; 85610; 93005; 93010; 99285; G0480; J7030; 80320

== ENCOUNTER 2018-04-16 23:51 | Emergency (ER) | payer MEDICAID ==
[2018-04-17] MEDS ORDERED: PROVENTIL IH PRN (00:40)
--- NOTE | 2018-04-17 00:51 | Emergency Department Report ---
ED General Adult HPI - General Chief complaint: Arrhythmia/Palpitations Stated complaint: HBP HEART TROUBLE MH Time Seen by Provider: 04/17/18 00:32 Source: patient, RN notes reviewed, old records reviewed Mode of arrival: Ambulatory Limitations: No Limitations - History of Present Illness Initial comments: This is a 42-year-old gentleman. I have evaluated this patient in the past. They see my note from March 2018 regarding the details of the past history. Today, the patient presents to the emergency room with a complaint of resolved palpitations. This happened a few weeks ago. Patient reports that he is homeless and he has no place to go. He denies physical pain currently. He denies homicidality and suicidality. He reports he was recently released from longterm. He denies headache, neck pain, chest pain, abdominal pain, shortness of breath. He reports that the main reason he came here is because he has no place to go. -: Sudden, week(s) Severity scale (0 -10): 0 Improves with: none Worsens with: none Associated Symptoms: denies other symptoms - Related Data Home Medications Medication Instructions Recorded Confirmed Last Taken ALBUTEROL NEB's [Proventil] 2.5 mg IH TID PRN 10/11/17 10/11/17 Unknown Acetaminophen [Tylenol] 325 mg PO Q6HR PRN 10/11/17 10/11/17 Unknown Ciclopirox 0.77% (Nf) [Loprox 10 applic TP DAILY 10/11/17 10/11/17 Unknown 0.77% (Nf)] Citalopram [celeXA] 20 mg PO QDAY 10/11/17 10/11/17 10/10/17 Guaifen/Dextromethorphan/PE 15 ml PO Q6HR PRN 10/11/17 10/11/17 Unknown [Robitussin Cough-Cold Cf Liq] Ipratropium/Albuterol Sulfate 1 ampul IH Q6HR 10/11/17 10/11/17 Unknown [DUONEB *Not for PRN Use*] Melatonin 3 mg PO QHS 10/11/17 10/11/17 10/10/17 Mirtazapine [Remeron] 15 mg PO QHS 10/11/17 10/11/17 10/10/17 Omeprazole Magnesium [PriLOSEC Otc] 20 mg PO QDAY 10/11/17 10/11/17 10/10/17 levETIRAcetam [Keppra TAB] 1,000 mg PO BID 10/11/17 10/11/17 10/10/17 Previous Rx's Medication Instructions Recorded Last Taken Type Divalproex Sodium [Depakote] 500 mg PO BID #30 tablet. 10/17/17 Unknown Rx OLANZapine [Zyprexa] 10 mg PO QHS #20 tablet 10/17/17 Unknown Rx busPIRone [Buspar] 5 mg PO BID #20 tab 10/17/17 Unknown Rx Allergies Allergy/AdvReac Type Severity Reaction Status Date / Time Iodine and Iodide Containing Allergy Hives Verified 10/11/17 01:42 Produc Sulfa (Sulfonamide Allergy Hives Verified 10/11/17 01:42 Antibiotics) sulfasalazine Allergy Hives Verified 10/11/17 01:42 dye Allergy Hives Uncoded 10/11/17 01:42 lodine Allergy Hives Uncoded 10/11/17 01:42 ED Review of Systems ROS: Stated complaint: HBP HEART TROUBLE MH Other details as noted in HPI Constitutional: denies: fever, malaise Eyes: denies: vision change ENT: denies: epistaxis Respiratory: denies: cough Cardiovascular: palpitations. denies: chest pain Gastrointestinal: denies: abdominal pain, nausea, vomiting Genitourinary: denies: dysuria Musculoskeletal: denies: back pain Skin: denies: lesions Neurological: denies: weakness Psychiatric: denies: anxiety, depression, homicidal thoughts, suicidal thoughts ED Past Medical Hx - Past Medical History Previous Medical History?: Yes Hx Hypertension: Yes Hx Psychiatric Treatment: Yes (paranoid disorder, anxiety) - Surgical History Past Surgical History?: No - Social History Smoking Status: Former Smoker Substance Use Type: None - Medications Home Medications: Home Medications Medication Instructions Recorded Confirmed Last Taken Type ALBUTEROL NEB's [Proventil] 2.5 mg IH TID PRN 10/11/17 10/11/17 Unknown History Acetaminophen [Tylenol] 325 mg PO Q6HR PRN 10/11/17 10/11/17 Unknown History Ciclopirox 0.77% (Nf) [Loprox 10 applic TP DAILY 10/11/17 10/11/17 Unknown History 0.77% (Nf)] Citalopram [celeXA] 20 mg PO QDAY 10/11/17 10/11/17 10/10/17 History Guaifen/Dextromethorphan/PE 15 ml PO Q6HR PRN 10/11/17 10/11/17 Unknown History [Robitussin Cough-Cold Cf Liq] Ipratropium/Albuterol Sulfate 1 ampul IH Q6HR 10/11/17 10/11/17 Unknown History [DUONEB *Not for PRN Use*] Melatonin 3 mg PO QHS 10/11/17 10/11/17 10/10/17 History Mirtazapine [Remeron] 15 mg PO QHS 10/11/17 10/11/17 10/10/17 History Omeprazole Magnesium [PriLOSEC Otc] 20 mg PO QDAY 10/11/17 10/11/17 10/10/17 History levETIRAcetam [Keppra TAB] 1,000 mg PO BID 10/11/17 10/11/17 10/10/17 History Divalproex Sodium [Depakote] 500 mg PO BID #30 tablet. 10/17/17 Unknown Rx OLANZapine [Zyprexa] 10 mg PO QHS #20 tablet 10/17/17 Unknown Rx busPIRone [Buspar] 5 mg PO BID #20 tab 10/17/17 Unknown Rx ED Physical Exam - General Limitations: No Limitations General appearance: alert, in no apparent distress - Head Head exam: Present: atraumatic, normocephalic - Eye Eye exam: Present: normal appearance, EOMI, other (visual acuity intact to finger counting, color perception, reading at a close distance). Absent: nystagmus - ENT ENT exam: Present: normal exam, normal orophraynx, mucous membranes moist, normal external ear exam - Neck Neck exam: Present: normal inspection, full ROM. Absent: tenderness, meningismus - Respiratory Respiratory exam: Present: normal lung sounds bilaterally. Absent: respiratory distress - Cardiovascular Cardiovascular Exam: Present: regular rate, normal rhythm, normal heart sounds. Absent: bradycardia, tachycardia, irregular rhythm, systolic murmur, diastolic murmur, rubs, gallop - GI/Abdominal GI/Abdominal exam: Present: soft. Absent: distended, tenderness, guarding, r ebound, rigid, pulsatile mass - Rectal Rectal exam: Present: deferred - Extremities Exam Extremities exam: Present: normal inspection, full ROM, other (2+ pulses noted in the bilateral upper, lower extremities. Compartments soft. No long bony tenderness. The pelvis is stable.). Absent: pedal edema, joint swelling, calf tenderness - Back Exam Back exam: Present: normal inspection, full ROM. Absent: tenderness, CVA tenderness (R), paraspinal tenderness, vertebral tenderness - Neurological Exam Neurological exam: Present: alert, oriented X3, CN II-XII intact, normal gait, other (Extraocular movements intact. Tongue midline. No facial droop. Facial sensation intact to light touch in the V1, V2, V3 distribution bilaterally. 5 and 5 strength in 4 extremities.. Sensation is intact to light touch in 4 extremities.). Absent: motor sensory deficit - Psychiatric Psychiatric exam: Absent: homicidal ideation, suicidal ideation - Skin Skin exam: Present: warm, dry, intact, normal color. Absent: rash ED Course Vital Signs 04/17/18 04/17/18 00:09 00:32 Temperature 97.7 F Pulse Rate 68 62 Respiratory 16 16 Rate Blood Pressure 193/121 Blood Pressure 188/96 [Left] O2 Sat by Pulse 99 98 Oximetry ED Medical Decision Making - Lab Data Result diagrams: 04/17/18 00:55 04/17/18 00:55 Vital Signs 04/17/18 04/17/18 00:09 00:32 Temperature 97.7 F Pulse Rate 68 62 Respiratory 16 16 Rate Blood Pressure 193/121 Blood Pressure 188/96 [Left] O2 Sat by Pulse 99 98 Oximetry Lab Results 04/17/18 04/17/18 04/17/18 Range/Units 00:55 00:55 00:55 WBC 4.8 (4.5-11.0) K/mm3 RBC 4.08 (3.65-5.03) M/mm3 Hgb 13.1 (11.8-15.2) gm/dl Hct 38.6 (35.5-45.6) % MCV 95 H (84-94) fl MCH 32 (28-32) pg MCHC 34 (32-34) % RDW 14.4 (13.2-15.2) % Plt Count 220 (140-440) K/mm3 Sodium 141 (137-145) mmol/L Potassium 4.5 (3.6-5.0) mmol/L Chloride 103.6 (98-107) mmol/L Carbon Dioxide 28 (22-30) mmol/L Anion Gap 14 mmol/L BUN 12 (9-20) mg/dL Creatinine 0.8 (0.8-1.5) mg/dL Estimated GFR > 60 ml/min BUN/Creatinine Ratio 15 % Glucose 94 (75-100) mg/dL Calcium 8.9 (8.4-10.2) mg/dL Total Creatine Kinase 191 H (55-170) units/L Salicylates < 0.3 L (2.8-20.0) mg/dL Acetaminophen (10.0-30.0) ug/mL Valproic Acid < 2.8 L (50-100) ug/mL Plasma/Serum Alcohol (0-0.07) % 04/17/18 04/17/18 Range/Units 00:55 00:55 WBC (4.5-11.0) K/mm3 RBC (3.65-5.03) M/mm3 Hgb (11.8-15.2) gm/dl Hct (35.5-45.6) % MCV (84-94) fl MCH (28-32) pg MCHC (32-34) % RDW (13.2-15.2) % Plt Count (140-440) K/mm3 Sodium (137-145) mmol/L Potassium (3.6-5.0) mmol/L Chloride (98-107) mmol/L Carbon Dioxide (22-30) mmol/L Anion Gap mmol/L BUN (9-20) mg/dL Creatinine (0.8-1.5) mg/dL Estimated GFR ml/min BUN/Creatinine Ratio % Glucose (75-100) mg/dL Calcium (8.4-10.2) mg/dL Total Creatine Kinase (55-170) units/L Salicylates (2.8-20.0) mg/dL Acetaminophen < 5.0 L (10.0-30.0) ug/mL Valproic Acid (50-100) ug/mL Plasma/Serum Alcohol < 0.01 (0-0.07) % - EKG Data -: EKG Interpreted by Ok EKG shows normal: sinus rhythm Rate: normal - EKG Data When compared to previous EKG there are: no significant change 04/17/18 02:30 Sinus, 63 bpm, normal axis, normal intervals, left ventricular voltage, abnormal EKG, not consistent with ST elevation myocardial infarction, unchanged from prior EKG from 03/14/2018. - Medical Decision Making Differential diagnosis, including not limited to: Palpitations, homelessness, general medical evaluation Assessment and plan: 42-year-old gentleman with an initial complaint of palpitations which happened a few weeks ago, now resolved, secondary complaint of homelessness. The patient is afebrile, clinically sober, and in no acute distress, and has reassuring vital signs with the exception of elevated blood pressure. This reference to the [employer] clinical policy on hypertension which is not acutely symptomatic or decompens ated. The patient's physical examination is unremarkable, and screening laboratory studies are unremarkable. The patient does not meet 1013 criteria currently. The patient will be referred to follow-up with an outpatient primary care doctor for his complaint of palpitations and elevated blood pressure. A case management consult has been requested. The patient may be discharged, and can remain in the waiting room pending evaluation from case management. The patient does not appear to have an emergent medical or psychiatric condition at this time. Critical care attestation.: If time is entered above; I have spent that time in minutes in the direct care of this critically ill patient, excluding procedure time. ED Disposition Clinical Impression: Homelessness, Elevated blood pressure reading, History of palpitations Disposition: DC-01 TO HOME OR SELFCARE Is pt being admited?: No Does the pt Need Aspirin: No Condition: Stable Instructions: Palpitations (ED), Hypertension (ED) Additional Instructions: Continue outpatient medications. Avoid consumption of stimulants, caffeine, cocaine, methamphetamines. Follow up with the primary care doctor or book solicitor within the next 3-4 weeks for complaint of palpitations. Patient found to have hypertension, elevated blood pressure in the emergency room today. Please follow up with a primary care doctor or book solicitor within the recommended time frame for this finding. Long-term complications of hypertension and elevated blood pressure includes stroke, heart attack, disability, paralysis, loss of quality of life. Please return to the emergency room right away with new, worsening or different symptoms. Referrals: [facility] [Provider Group] - as needed [facility] [Provider Group] - as needed
[2018-04-17 01:20] LABS: Hematocrit 38.6 % (35.5-45.6); Hemoglobin 13.1 gm/dl (11.8-15.2); Mean Corpuscular HGB Conc 34 % (32-34); Mean Corpuscular Volume 95 fl (84-94); Platelet Count 220 K/mm3 (140-440); Red Blood Count 4.08 M/mm3 (3.65-5.03); Red Cell Distribution Width 14.4 % (13.2-15.2)
[2018-04-17 01:55] LABS: BUN/Creatinine Ratio 15; Blood Urea Nitrogen 12 mg/dL (9-20); Calcium 8.9 mg/dL (8.4-10.2); Hemolysis Index 5
[2018-04-17] MEDS ORDERED: DUONEB *Not for PRN Use IH SCH (02:00)
[2018-04-17 03:06] VITALS: BP 173/105
[2018-04-17] MEDS ORDERED: PROTONIX PO SCH (10:00)
[2018-04-17] MEDS ORDERED: KEPPRA PO SCH (10:00)
[2018-04-17] MEDS ORDERED: celeXA PO SCH (10:00)
== END 2018-04-17 03:06 | disposition home or self-care (01) ==
LOC: ED 23:51
DX: R00.2 Palpitations (principal); I10 Essential (primary) hypertension; Z87.891 Personal history of nicotine dependence; Z88.2 Allergy status to sulfonamides; Z91.041 Radiographic dye allergy status
CPT/HCPCS: 36415; 80048; 80164; 82550; 85027; 93005; 93010; 99283; G0480; 80320

== ENCOUNTER 2019-11-19 22:49 | Observation (INO) | payer MEDICAID ==
[2019-11-20] MEDS ORDERED: SODIUM CHLORIDE 0.9% 1000 ML IV SOLN IV ONE (00:25)
[2019-11-20] MEDS ORDERED: cefTRIAXone/NS 2 GM/100 ML 2 GM/100 ML BAG IV ONE (00:46)
[2019-11-20 00:48] LABS: BUN/Creatinine Ratio 27; Blood Urea Nitrogen 24 mg/dL (9-20); Calcium 8.9 mg/dL (8.4-10.2); Hemolysis Index 7
[2019-11-20 00:50] LABS: Basophils % (Auto) 0.3 % (0.0-1.8); Eosinophils % (Auto) 0.1 % (0.0-4.3); Hematocrit 40.1 % (35.5-45.6); Hemoglobin 13.5 gm/dl (11.8-15.2); Lymphocytes # (Auto) 1.6 K/mm3 (1.2-5.4); Lymphocytes % (Auto) 10.5 % (13.4-35.0); Mean Corpuscular HGB Conc 34 % (32-34); Mean Corpuscular Volume 92 fl (84-94); Monocytes % (Auto) 12.8 % (0.0-7.3); Platelet Count 242 K/mm3 (140-440); Red Blood Count 4.35 M/mm3 (3.65-5.03); Red Cell Distribution Width 13.7 % (13.2-15.2)
[2019-11-20] MEDS ORDERED: POTASSIUM CHLORIDE ER 20 MEQ TAB PO ONE (01:35)
[2019-11-20] MEDS ORDERED: ACETAMINOPHEN 325 MG TAB PO ONE (01:35)
--- NOTE | 2019-11-20 01:49 | XRay Report ---
CHEST 1 VIEW INDICATION: fever. COMPARISON: . FINDINGS: Support devices: None. Heart: Normal. Lungs/Pleura: There are low lung volumes with atelectatic changes in the bases. No consolidation or e ffusion. IMPRESSION: 1. No acute findings. Signer Name: Mervin Govea MD Signed: 11/20/2019 1:45 AM Workstation Name: [id number]
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
[2019-11-20 02:41] LABS: Bilirubin,Urine NEG (Negative); Blood,Urine MOD (Negative); Color,Urine Yellow (Yellow); Hyaline Casts,Urine 3 /LPF; Mucus,Urine FEW /HPF; Protein,Urine <15 mg/dL mg/dL (Negative)
[2019-11-20 02:46] LABS: Amphetamine Screen,Urine PRESUMPTIVE NEGATIVE; Benzodiazepines Screen,Urine PRESUMPTIVE NEGATIVE; Cannabinoid Screen,Urine PRESUMPTIVE NEGATIVE; Cocaine Screen,Urine PRESUMPTIVE NEGATIVE; Methadone Screen,Urine PRESUMPTIVE NEGATIVE; Opiate Screen,Urine PRESUMPTIVE NEGATIVE
[2019-11-20] MEDS ORDERED: SODIUM CHLORIDE 0.9% 1000 ML 1,000 ML ONE (06:54)
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
[2019-11-20] MEDS ORDERED: ALBUTEROL 8.5 GM MDI INHALATION IH PRN (08:38)
[2019-11-20] MEDS ORDERED: cefTRIAXone/NS 2 GM/100 ML 2 GM/100 ML BAG IV SCH (10:00)
[2019-11-20] MEDS: busPIRone 5 MG TAB PO SCH ×2 (11:12→21:48)
[2019-11-20] MEDS: CITALOPRAM 20 MG TAB PO SCH (11:16)
[2019-11-20] MEDS: levETIRAcetam 500 MG TAB PO SCH ×2 (11:16→21:48)
[2019-11-20] MEDS: DIVALPROEX DR 500 MG TAB PO SCH ×2 (11:16→21:48)
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
--- NOTE | 2019-11-20 15:51 | Event Note ---
Date: 11/20/19 Patient's tubbs PCR is negative May DC contact isolation
[2019-11-21 06:14] LABS: Hematocrit 35.5 % (35.5-45.6); Hemoglobin 12.2 gm/dl (11.8-15.2); Mean Corpuscular HGB Conc 34 % (32-34); Mean Corpuscular Volume 92 fl (84-94); Platelet Count 201 K/mm3 (140-440); Red Blood Count 3.85 M/mm3 (3.65-5.03); Red Cell Distribution Width 13.5 % (13.2-15.2)
[2019-11-21 06:27] LABS: Alanine Aminotransferase 19 units/L (7-56); Albumin 3.2 g/dL (3.9-5); Blood Urea Nitrogen 10 mg/dL (9-20); Calcium 8.1 mg/dL (8.4-10.2); Hemolysis Index 2
[2019-11-21 06:35] LABS: BUN/Creatinine Ratio 14
[2019-11-21 07:31] LABS: Anisocytosis 1+; Basophils % (Manual) 0 % (0.0-1.8); Total Cells Counted 100
[2019-11-21 07:32] LABS: Platelet Estimate Consistent w Auto
[2019-11-21] MEDS ORDERED: ALBUTEROL 2.5 MG/3 ML NEBU IH PRN (09:00)
[2019-11-21] MEDS: levETIRAcetam 500 MG TAB PO SCH ×2 (09:28→21:45)
[2019-11-21] MEDS: busPIRone 5 MG TAB PO SCH ×2 (09:28→21:45)
[2019-11-21] MEDS: CITALOPRAM 20 MG TAB PO SCH (09:29)
[2019-11-21] MEDS: DIVALPROEX DR 500 MG TAB PO SCH ×2 (09:29→21:45)
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
--- NOTE | 2019-11-21 18:22 | Progress Note ---
Assessment and Plan Assessment and plan: --High suspicion for COVID-19/PUI Patricia PCR test negative --Combative and aggressive behavior present on admission Resolved, patient calm and composed, polite Not in acute distress --Sirs; evaluate for any infectious cause Leukocytosis tachycardia; resolved Blood cultures, urine cultures negative more than 24 hours --Lactic acidosis; resolved --Hypokalemia; corrected Received KCl --History of hypertension; moderate control Resume home antihypertensives and PRN medications --History of seizure disorder; Seizure precautions, resume Keppra Do not drive --Patient on multiple psych medications Possible history of depression Possible history of anxiety disorder History of bipolar History of psychosis Management per psych Psych consulted --Ongoing tobacco use; Smoking cessation counseling nicotine patch as needed --DVT prophylaxis; Lovenox Patient is clinically stable for discharge back to personal fpc Case management assisting with DC planning History Interval history: I have seen and examined the patient at the bedside Patient's chart and medications reviewed No agitation or aggression Patient alert awake oriented x3 Vital signs noted Hospitalist Physical - Constitutional Vitals: Temp Pulse Resp BP Pulse Ox 98.5 F 70 20 133/88 100 11/21/19 11:05 11/21/19 11:05 11/21/19 11:05 11/21/19 11:05 11/21/19 11:05 General appearance: Present: no acute distress, well-nourished - EENT Eyes: Present: PERRL, EOM intact - Neck Neck: Present: supple, normal ROM - Respiratory Respiratory effort: normal Respiratory: bilateral: diminished, negative: rales, rhonchi, wheezing - Cardiovascular Rhythm: regular - Extremities Extremities: no ischemia, No edema - Abdominal General gastrointestinal: soft, non-tender, non-distended, normal bowel sounds - Integumentary Integumentary: Present: clear, warm - Psychiatric Psychiatric: appropriate mood/affect, cooperative - Neurologic Neurologic: moves all extremities Results - Labs CBC & Chem 7: 11/21/19 05:44 11/21/19 05:44 Labs: Laboratory Last Values WBC 6.5 K/mm3 (4.5-11.0) 11/21/19 05:44 RBC 3.85 M/mm3 (3.65-5.03) 11/21/19 05:44 Hgb 12.2 gm/dl (11.8-15.2) 11/21/19 05:44 Hct 35.5 % (35.5-45.6) 11/21/19 05:44 MCV 92 fl (84-94) 11/21/19 05:44 MCH 32 pg (28-32) 11/21/19 05:44 MCHC 34 % (32-34) 11/21/19 05:44 RDW 13.5 % (13.2-15.2) 11/21/19 05:44 Plt Count 201 K/mm3 (140-440) 11/21/19 05:44 Lymph % (Auto) 10.5 % (13.4-35.0) L 11/19/19 23:47 [place] % (Auto) 12.8 % (0.0-7.3) H 11/19/19 23:47 Eos % (Auto) 0.1 % (0.0-4.3) 11/19/19 23:47 Baso % (Auto) 0.3 % (0.0-1.8) 11/19/19 23:47 Lymph # (Auto) 1.6 K/mm3 (1.2-5.4) 11/19/19 23:47 [place] # (Auto) 2.0 K/mm3 (0.0-0.8) H 11/19/19 23:47 Eos # (Auto) 0.0 K/mm3 (0.0-0.4) 11/19/19 23:47 Baso # (Auto) 0.0 K/mm3 (0.0-0.1) 11/19/19 23:47 Add Manual Diff Complete 11/21/19 05:44 Total Counted 100 11/21/19 05:44 Seg Neutrophils % Tablet Making Machine Operator Helper 11/21/19 05:44 Seg Neuts % (Manual) 30.0 % (40.0-70.0) L 11/21/19 05:44 Band Neutrophils % 0 % 11/21/19 05:44 Lymphocytes % (Manual) 56.0 % (13.4-35.0) H 11/21/19 05:44 Reactive Lymphs % (Man) 0 % 11/21/19 05:44 Monocytes % (Manual) 10.0 % (0.0-7.3) H 11/21/19 05:44 Eosinophils % (Manual) 4.0 % (0.0-4.3) 11/21/19 05:44 Basophils % (Manual) 0 % (0.0-1.8) 11/21/19 05:44 Metamyelocytes % 0 % 11/21/19 05:44 Myelocytes % 0 % 11/21/19 05:44 Promyelocytes % 0 % 11/21/19 05:44 Blast Cells % 0 % 11/21/19 05:44 Nucleated RBC % Not Reportable 11/21/19 05:44 Seg Neutrophils # 11.9 K/mm3 (1.8-7.7) H 11/19/19 23:47 Seg Neutrophils # Man 2.0 K/mm3 (1.8-7.7) 11/21/19 05:44 Band Neutrophils # 0.0 K/mm3 11/21/19 05:44 Lymphocytes # (Manual) 3.6 K/mm3 (1.2-5.4) 11/21/19 05:44 Abs React Lymphs (Man) 0.0 K/mm3 11/21/19 05:44 Monocytes # (Manual) 0.7 K/mm3 (0.0-0.8) 11/21/19 05:44 Eosinophils # (Manual) 0.3 K/mm3 (0.0-0.4) 11/21/19 05:44 Basophils # (Manual) 0.0 K/mm3 (0.0-0.1) 11/21/19 05:44 Metamyelocytes # 0.0 K/mm3 11/21/19 05:44 Myelocytes # 0.0 K/mm3 11/21/19 05:44 Promyelocytes # 0.0 K/mm3 11/21/19 05:44 Blast Cells # 0.0 K/mm3 11/21/19 05:44 WBC Morphology Not Reportable 11/21/19 05:44 Hypersegmented Neuts Not Reportable 11/21/19 05:44 Hyposegmented Neuts Not Reportable 11/21/19 05:44 Hypogranular Neuts Not Reportable 11/21/19 05:44 Smudge Cells Not Reportable 11/21/19 05:44 Toxic Granulation Not Reportable 11/21/19 05:44 Toxic Vacuolation Not Reportable 11/21/19 05:44 Dohle Bodies Not Reportable 11/21/19 05:44 Pelger-Huet Anomaly Not Reportable 11/21/19 05:44 Paco Rods Not Reportable 11/21/19 05:44 Platelet Estimate Consistent w auto 11/21/19 05:44 Clumped Platelets Not Reportable 11/21/19 05:44 Plt Clumps, EDTA Not Reportable 11/21/19 05:44 Large Platelets Not Reportable 11/21/19 05:44 Giant Platelets Not Reportable 11/21/19 05:44 Platelet Satelliting Not Reportable 11/21/19 05:44 Plt Morphology Comment Not Reportable 11/21/19 05:44 RBC Morphology Not Reportable 11/21/19 05:44 Dimorphic RBCs Not Reportable 11/21/19 05:44 Polychromasia Not Reportable 11/21/19 05:44 Hypochromasia Not Reportable 11/21/19 05:44 Poikilocytosis Not Reportable 11/21/19 05:44 Anisocytosis 1+ 11/21/19 05:44 Microcytosis Not Reportable 11/21/19 05:44 Macrocytosis Not Reportable 11/21/19 05:44 Spherocytes Not Reportable 11/21/19 05:44 Pappenheimer Bodies Not Reportable 11/21/19 05:44 Sickle Cells Not Reportable 11/21/19 05:44 Target Cells Not Reportable 11/21/19 05:44 Tear Drop Cells Not Reportable 11/21/19 05:44 Ovalocytes Not Reportable 11/21/19 05:44 Helmet Cells Not Reportable 11/21/19 05:44 Velasquez-Calvary Bodies Not Reportable 11/21/19 05:44 Waves Rings Not Reportable 11/21/19 05:44 Marlene Cells Not Reportable 11/21/19 05:44 Bite Cells Not Reportable 11/21/19 05:44 Crenated Cell Not Reportable 11/21/19 05:44 Elliptocytes Not Reportable 11/21/19 05:44 Acanthocytes (Spur) Not Reportable 11/21/19 05:44 Rouleaux Not Reportable 11/21/19 05:44 Hemoglobin C Crystals Not Reportable 11/21/19 05:44 Schistocytes Not Reportable 11/21/19 05:44 Malaria parasites Not Reportable 11/21/19 05:44 Jeffrey Bodies Not Reportable 11/21/19 05:44 Hem Pathologist Commnt No 11/21/19 05:44 Sodium 141 mmol/L (137-145) 11/21/19 05:44 Potassium 3.8 mmol/L (3.6-5.0) D 11/21/19 05:44 Chloride 108.2 mmol/L (98-107) H 11/21/19 05:44 Carbon Dioxide 25 mmol/L (22-30) 11/21/19 05:44 Anion Gap 12 mmol/L 11/21/19 05:44 BUN 10 mg/dL (9-20) 11/21/19 05:44 Creatinine 0.7 mg/dL (0.8-1.3) L 11/21/19 05:44 Estimated GFR > 60 ml/min 11/21/19 05:44 BUN/Creatinine Ratio 14 % 11/21/19 05:44 Glucose 97 mg/dL (75-100) 11/21/19 05:44 Lactic Acid 1.40 mmol/L (0.7-2.0) 11/20/19 05:48 Calcium 8.1 mg/dL (8.4-10.2) L 11/21/19 05:44 Magnesium 2.00 mg/dL (1.7-2.3) 11/20/19 02:30 Total Bilirubin 0.30 mg/dL (0.1-1.2) 11/21/19 05:44 AST 25 units/L (5-40) 11/21/19 05:44 ALT 19 units/L (7-56) 11/21/19 05:44 Alkaline Phosphatase 89 units/L (35-129) 11/21/19 05:44 Total Protein 6.1 g/dL (6.3-8.2) L 11/21/19 05:44 Albumin 3.2 g/dL (3.9-5) L 11/21/19 05:44 Albumin/Globulin Ratio 1.1 % 11/21/19 05:44 Urine Color Yellow (Yellow) 11/19/19 Unknown Urine Turbidity Clear (Clear) 11/19/19 Unknown Urine pH 6.0 (5.0-7.0) 11/19/19 Unknown Ur Specific [place] 1.023 (1.003-1.030) 11/19/19 Unknown Urine Protein <15 mg/dl mg/dL (Negative) 11/19/19 Unknown Urine Glucose (UA) Neg mg/dL (Negative) 11/19/19 Unknown Urine Ketones Neg mg/dL (Negative) 11/19/19 Unknown Urine Blood Mod (Negative) 11/19/19 Unknown Urine Nitrite Neg (Negative) 11/19/19 Unknown Urine Bilirubin Neg (Negative) 11/19/19 Unknown Urine Urobilinogen 2.0 mg/dL (<2.0) 11/19/19 Unknown Ur Leukocyte Esterase Neg (Negative) 11/19/19 Unknown Urine WBC (Auto) 1.0 /HPF (0.0-6.0) 11/19/19 Unknown Urine RBC (Auto) 5.0 /HPF (0.0-6.0) 11/19/19 Unknown Hyaline Casts 3 /LPF 11/19/19 Unknown Urine Mucus Few /HPF 11/19/19 Unknown Salicylates < 0.3 mg/dL (2.8-20.0) L 11/19/19 23:47 Urine Opiates Screen Presumptive negative 11/19/19 Unknown Urine Methadone Screen Presumptive negative 11/19/19 Unknown Acetaminophen 5.0 ug/mL (10.0-30.0) L 11/19/19 23:47 Ur Barbiturates Screen Presumptive negative 11/19/19 Unknown Ur Phencyclidine Scrn Presumptive negative 11/19/19 Unknown Ur Amphetamines Screen Presumptive negative 11/19/19 Unknown U Benzodiazepines Scrn Presumptive negative 11/19/19 Unknown Urine Cocaine Screen Presumptive negative 11/19/19 Unknown U Marijuana (THC) Screen Presumptive negative 11/19/19 Unknown Drugs of Abuse Note Disclamer 11/19/19 Unknown Plasma/Serum Alcohol < 0.01 % (0-0.07) 11/19/19 23:47 Coronavirus (PCR) Negative (Negative) 11/20/19 Unknown Microbiology: Microbiology 11/20/19 Unknown Urine,Clean Catch Urine Culture - Preliminary NO GROWTH AFTER 24 HOURS 11/20/19 01:00 Peripheral/Venous Blood Culture - Preliminary NO GROWTH AFTER 24 HOURS 11/20/19 00:41 Peripheral/Venous Blood Culture - Preliminary NO GROWTH AFTER 24 HOURS Gupta/IV: Voiding Method Toilet IV Catheter Type [Right INT / Saline Lock Forearm] Active Medications - Current Medications Current Medications: Generic Name Dose Route Start Last Admin Trade Name Freq PRN Reason Stop Dose Admin Albuterol 2.5 mg 11/21/19 09:00 Proventil IH Q4HRT PRN Shortness Of Breath Buspirone HCl 5 mg 11/20/19 10:00 11/21/19 09:28 Buspar PO 5 mg BID VALDEMAR Administration Citalopram Hydrobromide 20 mg 11/20/19 10:00 11/21/19 09:29 Celexa PO 20 mg QDAY VALDEMAR Administration Divalproex Sodium 500 mg 11/20/19 10:00 11/21/19 09:[address] PO 500 mg BID VALDEMAR Administration Levetiracetam 1,000 mg 11/20/19 10:00 11/21/19 09:28 Keppra PO 1,000 mg BID VALDEMAR Administration Olanzapine 10 mg 11/20/19 22:00 11/20/19 21:48 Zyprexa PO 10 mg QHS VALDEMAR Administration Nutrition/Malnutrition Assess - Dietary Evaluation Nutrition/Malnutrition Findings: Nutrition Notes Start: 11/21/19 09:50 Freq: Status: Active Protocol: Document 11/21/19 09:50 LM (Rec: 11/21/19 09:51 LM [id number]) Nutrition Notes Need for Assessment generated from: shoveler Initial or Follow up Brief Note Subjective/Other Information RN screen for skin risk. Simone score is 21 with no wound documneted in chart. Nutrition Intervention Revisit per MD consult or patient Sign Off request:
[2019-11-22] MEDS: busPIRone 5 MG TAB PO SCH (09:47)
[2019-11-22] MEDS: levETIRAcetam 500 MG TAB PO SCH (09:47)
[2019-11-22] MEDS: CITALOPRAM 20 MG TAB PO SCH (09:47)
[2019-11-22] MEDS: DIVALPROEX DR 500 MG TAB PO SCH (10:00)
[2019-11-22 17:31] VITALS: BP 166/105
== END 2019-11-22 08:00 | disposition home or self-care (01) ==
LOC: ED 22:49 → 3A 11-20 04:16
PROVIDERS: ADMIT Internal Medicine Geriatric Medicine; ATTEND Internal Medicine
DX: R45.6 Violent behavior (principal); Z20.828 Contact with and (suspected) exposure to other viral communicable diseases; R65.10 Systemic inflammatory response syndrome (SIRS) of non-infectious origin without acute organ dysfunction; I10 Essential (primary) hypertension; E87.6 Hypokalemia; G40.909 Epilepsy, unspecified, not intractable, without status epilepticus; F17.210 Nicotine dependence, cigarettes, uncomplicated; F41.9 Anxiety disorder, unspecified; F31.9 Bipolar disorder, unspecified; F29 Unspecified psychosis not due to a substance or known physiological condition; F79 Unspecified intellectual disabilities; E87.2 Acidosis
CPT/HCPCS: 36415; 71045; 80048; 80053; 80307; 81001; 82140; 83735; 85025; 87040; 87086; 93005; 94640; 96361; 96365; 96375; 99285; 99406; G0378; J0696; J7030; U0003; 80320; 85007; G0480

== ENCOUNTER 2020-05-12 19:49 | Emergency (ER) | payer MEDICAID ==
[2020-05-12] MEDS ORDERED: THIAMINE 100 MG, FOLIC ACID 1 MG in SODIUM CHLORIDE 0.9% 1000 ML 1,000 ML IV ONE (20:38)
--- NOTE | 2020-05-12 20:50 | Emergency Department Report ---
<DELBERT MOHAMUD III - Last Filed: 05/13/20 03:51> ED Psych HPI - General Chief Complaint: Psych Stated Complaint: MENTAL HEALTH Time Seen by Provider: 05/12/20 20:37 - Related Data Home Medications Medication Instructions Recorded Confirmed Last Taken ALBUTEROL NEB's [Proventil 0.083% 2.5 mg IH TID PRN 10/11/17 10/11/17 Unknown NEBS] Acetaminophen [Acetaminophen TAB] 325 mg PO Q6HR PRN 10/11/17 10/11/17 Unknown Ciclopirox 0.77% (Nf) [Loprox 10 applic TP DAILY 10/11/17 10/11/17 Unknown 0.77% Cream] Citalopram [Celexa] 20 mg PO QDAY 10/11/17 10/11/17 10/10/17 Guaifen/Dextromethorphan/PE 15 ml PO Q6HR PRN 10/11/17 10/11/17 Unknown [Robitussin Cough-Cold Cf Liq] Ipratropium/Albuterol Sulfate 1 ampul IH Q6HR 10/11/17 10/11/17 Unknown [DUONEB *Not for PRN Use*] Melatonin 3 mg PO QHS 10/11/17 10/11/17 10/10/17 Mirtazapine [Remeron 15mg TAB] 15 mg PO QHS 10/11/17 10/11/17 10/10/17 Omeprazole Magnesium [PriLOSEC Otc] 20 mg PO QDAY 10/11/17 10/11/17 10/10/17 levETIRAcetam [Keppra TAB] 1,000 mg PO BID 10/11/17 10/11/17 10/10/17 Previous Rx's Medication Instructions Recorded Last Taken Type Divalproex Sodium [Depakote] 500 mg PO BID #30 tablet. 10/17/17 Unknown Rx OLANZapine [Zyprexa] 10 mg PO QHS #20 tablet 10/17/17 Unknown Rx busPIRone [Buspar] 5 mg PO BID #20 tab 10/17/17 Unknown Rx Allergies Allergy/AdvReac Type Severity Reaction Status Date / Time Iodine and Iodide Containing Allergy Hives Verified 10/11/17 01:42 Produc Sulfa (Sulfonamide Allergy Hives Verified 10/11/17 01:42 Antibiotics) sulfasalazine Allergy Hives Verified 10/11/17 01:42 dye Allergy Hives Uncoded 10/11/17 01:42 lodine Allergy Hives Uncoded 10/11/17 01:42 ED Past Medical Hx - Medications Home Medications: Home Medications Medication Instructions Recorded Confirmed Last Taken Type ALBUTEROL NEB's [Proventil 0.083% 2.5 mg IH TID PRN 10/11/17 10/11/17 Unknown History NEBS] Acetaminophen [Acetaminophen TAB] 325 mg PO Q6HR PRN 10/11/17 10/11/17 Unknown History Ciclopirox 0.77% (Nf) [Loprox 10 applic TP DAILY 10/11/17 10/11/17 Unknown History 0.77% Cream] Citalopram [Celexa] 20 mg PO QDAY 10/11/17 10/11/17 10/10/17 History Guaifen/Dextromethorphan/PE 15 ml PO Q6HR PRN 10/11/17 10/11/17 Unknown History [Robitussin Cough-Cold Cf Liq] Ipratropium/Albuterol Sulfate 1 ampul IH Q6HR 10/11/17 10/11/17 Unknown History [DUONEB *Not for PRN Use*] Melatonin 3 mg PO QHS 10/11/17 10/11/17 10/10/17 History Mirtazapine [Remeron 15mg TAB] 15 mg PO QHS 10/11/17 10/11/17 10/10/17 History Omeprazole Magnesium [PriLOSEC Otc] 20 mg PO QDAY 10/11/17 10/11/17 10/10/17 History levETIRAcetam [Keppra TAB] 1,000 mg PO BID 10/11/17 10/11/17 10/10/17 History Divalproex Sodium [Depakote] 500 mg PO BID #30 tablet. 10/17/17 Unknown Rx OLANZapine [Zyprexa] 10 mg PO QHS #20 tablet 10/17/17 Unknown Rx busPIRone [Buspar] 5 mg PO BID #20 tab 10/17/17 Unknown Rx ED Course - Reevaluation(s) Reevaluation #2: Patient was signed out to me from previous physician to monitor heart rate. Patient's heart rate has improved. Patient current heart rate is between 88 and 94. Patient's vital signs are stable. Patient has received all his fluid. Patient is medically cleared. Patient will remain in the ER as an ER hold until the patient's final disposition comes from our psychiatry and mental health team. 05/13/20 03:51 ED Medical Decision Making - Lab Data Result diagrams: 05/12/20 20:29 05/12/20 20:29 ED Disposition Clinical Impression: Schizophrenia, Suicidal ideation, Psychosis, Sinus tachycardia, Alcohol abuse, Hypokalemia, Medical clearance for psychiatric admission Disposition: [id number]/[id number] PSY HOSP/PSY UNIT Is pt being admited?: No Does the pt Need Aspirin: No Condition: Stable Additional Instructions: OUTPATIENT MENTAL HEALTH RESOURCES [facility], [facility] Camila Montes MD: [address] [facility] [address] [place] [address] [place] [address] [place]: [employer] [facility] [address] [place] [address] [place] [address] [phone] [facility]: [facility]: [address] [facility] [address] [facility] [place] [address] [facility] [id number] [facility]: Veto Dalton MD: [address] [facility] [address] [facility] [id number] [facility]: [address] [place], [place] [id number] [phone] [place] CRISIS AND ACCESS LINE: Referrals: PRIMARY CARE, [Primary Care Provider] - 3-5 Days Time of Disposition: 03:52 <ANTONIO GOLDBERG - Last Filed: 05/14/20 11:04> ED Psych HPI - General Source: patient, EMS Mode of arrival: Stretcher Limitations: No Limitations - History of Present Illness Initial Comments: 44-year-old male presents to the hospital planing of auditory and visual hallucinations, suicidal ideation with plan, and alcohol use. Patient states he wants to kill himself by shooting himself with questionable access to a weapon. He states he does have a place to live but they "do not want him there". He admits to drinking 1/5 of wine a day including prior to arrival and drinks alcohol daily. Denies history of alcohol withdrawal tremors. Patient denies drug use but states he smokes tobacco. He complains of chest pain today without reports of shortness of breath and thinks is related to smoking. He denies cough or fever. Patient is very talkative but cooperative ED Review of Systems ROS: Stated complaint: MENTAL HEALTH Other details as noted in HPI Comment: All other systems reviewed and negative ED Past Medical Hx - Past Medical History Hx Hypertension: Yes Hx Psychiatric Treatment: Yes (paranoid disorder, anxiety) - Social History Smoking Status: Current Every Day Smoker ED Physical Exam - General Limitations: No Limitations - Other Other exam information: General: No acute distress Head: Atraumatic Eyes: normal appearance ENT: Moist mucous membranes Neck: Normal appearance, no midline tenderness Chest: Clear to auscultation bilaterally CV: Tachycardic regular Abdomen: Soft, normal bowel sounds, nontender, nondistended, no rebound or guarding Back: Normal inspection Extremity: Normal inspection, full range of motion Neuro: Alert O x 3, no facial asymmetry, speech clear, no gross motor sensory deficit, no tremor Psych: Talkative but cooperative Skin: No rash ED Course Vital Signs 05/12/20 05/12/20 05/12/20 20:11 20:43 21:30 Temperature 98.6 F Pulse Rate 126 H 126 H Respiratory 18 18 18 Rate Blood Pressure 101/75 Blood Pressure 115/55 [Right] O2 Sat by Pulse 98 98 98 Oximetry 05/12/20 05/13/20 05/13/20 22:45 01:35 02:00 Temperature Pulse Rate 111 H 95 H 89 Respiratory 18 18 18 Rate Blood Pressure Blood Pressure 131/86 118/78 120/78 [Right] O2 Sat by Pulse 99 100 100 Oximetry 05/13/20 05/13/20 02:20 06:00 Temperature 97.6 F Pulse Rate 92 H 96 H Respiratory 16 18 Rate Blood Pressure Blood Pressure 120/82 144/95 [Right] O2 Sat by Pulse 100 100 Oximetry - Reevaluation(s) Reevaluation #1: 05/13/20 01:41 currently sleeping after geodon and ativan 2mg, HR 107, IVF in progress ED Medical Decision Making - Lab Data Result diagrams: 05/12/20 20:29 05/12/20 20:29 Lab Results 05/12/20 05/12/20 05/12/20 Range/Units 20:29 20:29 20:29 WBC 7.3 (4.5-11.0) K/mm3 RBC 4.53 (3.65-5.03) M/mm3 Hgb 14.3 (11.8-15.2) gm/dl Hct 42.6 (35.5-45.6) % MCV 94 (84-94) fl MCH 32 (28-32) pg MCHC 34 (32-34) % RDW 14.2 (13.2-15.2) % Plt Count 259 (140-440) K/mm3 Lymph % (Auto) 30.2 (13.4-35.0) % [place] % (Auto) 10.3 H (0.0-7.3) % Eos % (Auto) 1.3 (0.0-4.3) % Baso % (Auto) 0.9 (0.0-1.8) % Lymph # (Auto) 2.2 (1.2-5.4) K/mm3 [place] # (Auto) 0.8 (0.0-0.8) K/mm3 Eos # (Auto) 0.1 (0.0-0.4) K/mm3 Baso # (Auto) 0.1 (0.0-0.1) K/mm3 Seg Neutrophils % 57.3 (40.0-70.0) % Seg Neutrophils # 4.2 (1.8-7.7) K/mm3 D-Dimer (0-234) ng/mlDDU Sodium 139 (137-145) mmol/L Potassium 3.0 L (3.6-5.0) mmol/L Chloride 101.7 (98-107) mmol/L Carbon Dioxide 21 L (22-30) mmol/L Anion Gap 19 mmol/L BUN 11 (9-20) mg/dL Creatinine 0.8 (0.8-1.3) mg/dL Estimated GFR > 60 ml/min BUN/Creatinine Ratio 14 % Glucose 124 H (75-100) mg/dL Calcium 8.8 (8.4-10.2) mg/dL Magnesium (1.7-2.3) mg/dL Troponin T (0.00-0.029) ng/mL TSH (0.270-4.200) mlU/mL Free T4 (0.76-1.46) ng/dL Urine Color (Yellow) Urine Turbidity (Clear) Urine pH (5.0-7.0) Ur Specific [place] (1.003-1.030) Urine Protein (Negative) mg/dL Urine Glucose (UA) (Negative) mg/dL Urine Ketones (Negative) mg/dL Urine Blood (Negative) Urine Nitrite (Negative) Urine Bilirubin (Negative) Urine Urobilinogen (<2.0) mg/dL Ur Leukocyte Esterase (Negative) Urine WBC (Auto) (0.0-6.0) /HPF Urine RBC (Auto) (0.0-6.0) /HPF Urine Mucus /HPF Salicylates < 0.3 L (2.8-20.0) mg/dL Urine Opiates Screen Urine Methadone Screen Acetaminophen (10.0-30.0) ug/mL Ur Barbiturates Screen Ur Phencyclidine Scrn Ur Amphetamines Screen U Benzodiazepines Scrn Urine Cocaine Screen U Marijuana (THC) Screen Drugs of Abuse Note Plasma/Serum Alcohol (0-0.07) % Coronavirus (PCR) (Negative) 05/12/20 05/12/20 05/12/20 Range/Units 20:29 20:29 20:42 WBC (4.5-11.0) K/mm3 RBC (3.65-5.03) M/mm3 Hgb (11.8-15.2) gm/dl Hct (35.5-45.6) % MCV (84-94) fl MCH (28-32) pg MCHC (32-34) % RDW (13.2-15.2) % Plt Count (140-440) K/mm3 Lymph % (Auto) (13.4-35.0) % [place] % (Auto) (0.0-7.3) % Eos % (Auto) (0.0-4.3) % Baso % (Auto) (0.0-1.8) % Lymph # (Auto) (1.2-5.4) K/mm3 [place] # (Auto) (0.0-0.8) K/mm3 Eos # (Auto) (0.0-0.4) K/mm3 Baso # (Auto) (0.0-0.1) K/mm3 Seg Neutrophils % (40.0-70.0) % Seg Neutrophils # (1.8-7.7) K/mm3 D-Dimer 149.41 (0-234) ng/mlDDU Sodium (137-145) mmol/L Potassium (3.6-5.0) mmol/L Chloride (98-107) mmol/L Carbon Dioxide (22-30) mmol/L Anion Gap mmol/L BUN (9-20) mg/dL Creatinine (0.8-1.3) mg/dL Estimated GFR ml/min BUN/Creatinine Ratio % Glucose (75-100) mg/dL Calcium (8.4-10.2) mg/dL Magnesium (1.7-2.3) mg/dL Troponin T (0.00-0.029) ng/mL TSH (0.270-4.200) mlU/mL Free T4 (0.76-1.46) ng/dL Urine Color (Yellow) Urine Turbidity (Clear) Urine pH (5.0-7.0) Ur Specific [place] (1.003-1.030) Urine Protein (Negative) mg/dL Urine Glucose (UA) (Negative) mg/dL Urine Ketones (Negative) mg/dL Urine Blood (Negative) Urine Nitrite (Negative) Urine Bilirubin (Negative) Urine Urobilinogen (<2.0) mg/dL Ur Leukocyte Esterase (Negative) Urine WBC (Auto) (0.0-6.0) /HPF Urine RBC (Auto) (0.0-6.0) /HPF Urine Mucus /HPF Salicylates (2.8-20.0) mg/dL Urine Opiates Screen Urine Methadone Screen Acetaminophen 5.0 L (10.0-30.0) ug/mL Ur Barbiturates Screen Ur Phencyclidine Scrn Ur Amphetamines Screen U Benzodiazepines Scrn Urine Cocaine Screen U Marijuana (THC) Screen Drugs of Abuse Note Plasma/Serum Alcohol 0.10 H (0-0.07) % Coronavirus (PCR) (Negative) 05/12/20 05/12/20 05/12/20 Range/Units 20:42 20:42 20:56 WBC (4.5-11.0) K/mm3 RBC (3.65-5.03) M/mm3 Hgb (11.8-15.2) gm/dl Hct (35.5-45.6) % MCV (84-94) fl MCH (28-32) pg MCHC (32-34) % RDW (13.2-15.2) % Plt Count (140-440) K/mm3 Lymph % (Auto) (13.4-35.0) % [place] % (Auto) (0.0-7.3) % Eos % (Auto) (0.0-4.3) % Baso % (Auto) (0.0-1.8) % Lymph # (Auto) (1.2-5.4) K/mm3 [place] # (Auto) (0.0-0.8) K/mm3 Eos # (Auto) (0.0-0.4) K/mm3 Baso # (Auto) (0.0-0.1) K/mm3 Seg Neutrophils % (40.0-70.0) % Seg Neutrophils # (1.8-7.7) K/mm3 D-Dimer (0-234) ng/mlDDU Sodium (137-145) mmol/L Potassium (3.6-5.0) mmol/L Chloride (98-107) mmol/L Carbon Dioxide (22-30) mmol/L Anion Gap mmol/L BUN (9-20) mg/dL Creatinine (0.8-1.3) mg/dL Estimated GFR ml/min BUN/Creatinine Ratio % Glucose (75-100) mg/dL Calcium (8.4-10.2) mg/dL Magnesium 2.10 (1.7-2.3) mg/dL Troponin T < 0.010 (0.00-0.029) ng/mL TSH 2.230 (0.270-4.200) mlU/mL Free T4 1.79 H (0.76-1.46) ng/dL Urine Color (Yellow) Urine Turbidity (Clear) Urine pH (5.0-7.0) Ur Specific [place] (1.003-1.030) Urine Protein (Negative) mg/dL Urine Glucose (UA) (Negative) mg/dL Urine Ketones (Negative) mg/dL Urine Blood (Negative) Urine Nitrite (Negative) Urine Bilirubin (Negative) Urine Urobilinogen (<2.0) mg/dL Ur Leukocyte Esterase (Negative) Urine WBC (Auto) (0.0-6.0) /HPF Urine RBC (Auto) (0.0-6.0) /HPF Urine Mucus /HPF Salicylates (2.8-20.0) mg/dL Urine Opiates Screen Urine Methadone Screen Acetaminophen (10.0-30.0) ug/mL Ur Barbiturates Screen Ur Phencyclidine Scrn Ur Amphetamines Screen U Benzodiazepines Scrn Urine Cocaine Screen U Marijuana (THC) Screen Drugs of Abuse Note Plasma/Serum Alcohol (0-0.07) % Coronavirus (PCR) (Negative) 05/12/20 05/12/20 05/13/20 Range/Units 23:37 Unknown 00:06 WBC (4.5-11.0) K/mm3 RBC (3.65-5.03) M/mm3 Hgb (11.8-15.2) gm/dl Hct (35.5-45.6) % MCV (84-94) fl MCH (28-32) pg MCHC (32-34) % RDW (13.2-15.2) % Plt Count (140-440) K/mm3 Lymph % (Auto) (13.4-35.0) % [place] % (Auto) (0.0-7.3) % Eos % (Auto) (0.0-4.3) % Baso % (Auto) (0.0-1.8) % Lymph # (Auto) (1.2-5.4) K/mm3 [place] # (Auto) (0.0-0.8) K/mm3 Eos # (Auto) (0.0-0.4) K/mm3 Baso # (Auto) (0.0-0.1) K/mm3 Seg Neutrophils % (40.0-70.0) % Seg Neutrophils # (1.8-7.7) K/mm3 D-Dimer (0-234) ng/mlDDU Sodium (137-145) mmol/L Potassium (3.6-5.0) mmol/L Chloride (98-107) mmol/L Carbon Dioxide (22-30) mmol/L Anion Gap mmol/L BUN (9-20) mg/dL Creatinine (0.8-1.3) mg/dL Estimated GFR ml/min BUN/Creatinine Ratio % Glucose (75-100) mg/dL Calcium (8.4-10.2) mg/dL Magnesium (1.7-2.3) mg/dL Troponin T < 0.010 (0.00-0.029) ng/mL TSH (0.270-4.200) mlU/mL Free T4 (0.76-1.46) ng/dL Urine Color Straw (Yellow) Urine Turbidity Clear (Clear) Urine pH 6.0 (5.0-7.0) Ur Specific [place] 1.003 (1.003-1.030) Urine Protein <15 mg/dl (Negative) mg/dL Urine Glucose (UA) Neg (Negative) mg/dL Urine Ketones Neg (Negative) mg/dL Urine Blood Neg (Negative) Urine Nitrite Neg (Negative) Urine Bilirubin Neg (Negative) Urine Urobilinogen < 2.0 (<2.0) mg/dL Ur Leukocyte Esterase Neg (Negative) Urine WBC (Auto) 0.0 (0.0-6.0) /HPF Urine RBC (Auto) < 1.0 (0.0-6.0) /HPF Urine Mucus Few /HPF Salicylates (2.8-20.0) mg/dL Urine Opiates Screen Urine Methadone Screen Acetaminophen (10.0-30.0) ug/mL Ur Barbiturates Screen Ur Phencyclidine Scrn Ur Amphetamines Screen U Benzodiazepines Scrn Urine Cocaine Screen U Marijuana (THC) Screen Drugs of Abuse Note Plasma/Serum Alcohol (0-0.07) % Coronavirus (PCR) Negative (Negative) 05/13/20 05/13/20 Range/Units 00:06 02:28 WBC (4.5-11.0) K/mm3 RBC (3.65-5.03) M/mm3 Hgb (11.8-15.2) gm/dl Hct (35.5-45.6) % MCV (84-94) fl MCH (28-32) pg MCHC (32-34) % RDW (13.2-15.2) % Plt Count (140-440) K/mm3 Lymph % (Auto) (13.4-35.0) % [place] % (Auto) (0.0-7.3) % Eos % (Auto) (0.0-4.3) % Baso % (Auto) (0.0-1.8) % Lymph # (Auto) (1.2-5.4) K/mm3 [place] # (Auto) (0.0-0.8) K/mm3 Eos # (Auto) (0.0-0.4) K/mm3 Baso # (Auto) (0.0-0.1) K/mm3 Seg Neutrophils % (40.0-70.0) % Seg Neutrophils # (1.8-7.7) K/mm3 D-Dimer (0-234) ng/mlDDU Sodium (137-145) mmol/L Potassium (3.6-5.0) mmol/L Chloride (98-107) mmol/L Carbon Dioxide (22-30) mmol/L Anion Gap mmol/L BUN (9-20) mg/dL Creatinine (0.8-1.3) mg/dL Estimated GFR ml/min BUN/Creatinine Ratio % Glucose (75-100) mg/dL Calcium (8.4-10.2) mg/dL Magnesium (1.7-2.3) mg/dL Troponin T < 0.010 (0.00-0.029) ng/mL TSH (0.270-4.200) mlU/mL Free T4 (0.76-1.46) ng/dL Urine Color (Yellow) Urine Turbidity (Clear) Urine pH (5.0-7.0) Ur Specific [place] (1.003-1.030) Urine Protein (Negative) mg/dL Urine Glucose (UA) (Negative) mg/dL Urine Ketones (Negative) mg/dL Urine Blood (Negative) Urine Nitrite (Negative) Urine Bilirubin (Negative) Urine Urobilinogen (<2.0) mg/dL Ur Leukocyte Esterase (Negative) Urine WBC (Auto) (0.0-6.0) /HPF Urine RBC (Auto) (0.0-6.0) /HPF Urine Mucus /HPF Salicylates (2.8-20.0) mg/dL Urine Opiates Screen Presumptive negative Urine Methadone Screen Presumptive negative Acetaminophen (10.0-30.0) ug/mL Ur Barbiturates Screen Presumptive negative Ur Phencyclidine Scrn Presumptive negative Ur Amphetamines Screen Presumptive negative U Benzodiazepines Scrn Presumptive negative Urine Cocaine Screen Presumptive negative U Marijuana (THC) Screen Presumptive negative Drugs of Abuse Note Disclamer Plasma/Serum Alcohol (0-0.07) % Coronavirus (PCR) (Negative) - EKG Data -: EKG Interpreted by Me EKG shows normal: sinus rhythm Rate: tachycardia (110) - Radiology Data Radiology results: report reviewed CHEST 1 VIEW, 05/12/2020 8:32 PM CLINICAL INFORMATION/INDICATION: Chest pain COMPARISON: Chest radiograph, 11/20/2019 FINDINGS: SUPPORT DEVICES: None. HEART: The cardiac silhouette is normal in size. LUNGS/PLEURA: The lungs are clear of focal airspace disease or significant pleural effusion. ADDITIONAL FINDINGS: No additional acute findings. IMPRESSION: 1. No evidence of acute cardiopulmonary process. - Medical Decision Making 44-year-old male presents to the hospital with suicidal ideation. Admits to alcohol use. Denies drug use but apparently has a history of cocaine abuse. Patient did complain of chest pain but EKG shows sinus tachycardia without ischemic findings, normal D-dimer, several negative troponins, and normal thyroid function test. Patient required Geodon and Ativan for chemical sedation due to increased agitation and uncooperative behavior. Patient received IV fluids and further sedation with Ativan and placed on CIWA protocol. Chest x-ray unremarkable without signs of hypoxia. Covid test ordered as per mental health request. P.o. potassium ordered for mild hypokalemia. patient be medically cleared when his heart rate is below 100 and other vital signs remained stable. Pt signed out to Dr mohamud chart reviewed on 05/14 at 11:03 am. hr improved less then 100 so pt medically cleared. Pt was cleared by psych for d/c and went home with outpatient resources. Critical Care Time: No Critical care attestation.: If time is entered above; I have spent that time in minutes in the direct care of this critically ill patient, excluding procedure time.
[2020-05-12 20:57] LABS: Basophils # (Auto) 0.1 K/mm3 (0.0-0.1); Basophils % (Auto) 0.9 % (0.0-1.8); Eosinophils # (Auto) 0.1 K/mm3 (0.0-0.4); Eosinophils % (Auto) 1.3 % (0.0-4.3); Hematocrit 42.6 % (35.5-45.6); Hemoglobin 14.3 gm/dl (11.8-15.2); Lymphocytes # (Auto) 2.2 K/mm3 (1.2-5.4); Lymphocytes % (Auto) 30.2 % (13.4-35.0); Mean Corpuscular HGB Conc 34 % (32-34); Mean Corpuscular Volume 94 fl (84-94); Monocytes # (Auto) 0.8 K/mm3 (0.0-0.8); Monocytes % (Auto) 10.3 % (0.0-7.3); Platelet Count 259 K/mm3 (140-440); Red Blood Count 4.53 M/mm3 (3.65-5.03); Red Cell Distribution Width 14.2 % (13.2-15.2)
--- NOTE | 2020-05-12 21:03 | XRay Report ---
CHEST 1 VIEW, 05/12/2020 8:32 PM CLINICAL INFORMATION/INDICATION: Chest pain COMPARISON: Chest radiograph, 11/20/2019 FINDINGS: SUPPORT DEVICES: None. HEART: The cardiac silhouette is normal in size. LUNGS/PLEURA: The lungs are clear of focal airspace disease or significant pleural effusion. ADDITIONAL FINDINGS: No additional acute findings. IMPRESSION: 1. No evidence of acute cardiopulmonary process. Signer Name: Tatum Polanco MD Signed: 05/12/2020 8:59 PM Workstation Name: [id number]
[2020-05-12 21:11] LABS: BUN/Creatinine Ratio 14; Blood Urea Nitrogen 11 mg/dL (9-20); Calcium 8.8 mg/dL (8.4-10.2); Hemolysis Index 10
[2020-05-12] MEDS ORDERED: POTASSIUM CHLORIDE ER 20 MEQ TAB PO ONE (21:20)
[2020-05-12 21:22] LABS: Free T4 (Free Thyroxine) 1.79 ng/dL (0.76-1.46)
[2020-05-12] MEDS ORDERED: ZIPRASIDONE MESYLATE 20 MG VIAL IM ONE (23:06)
[2020-05-12] MEDS ORDERED: LORazepam 2 MG/ML VIAL IM ONE (23:07)
[2020-05-13 00:47] LABS: Bilirubin,Urine NEG (Negative); Blood,Urine NEG (Negative); Color,Urine Straw (Yellow); Mucus,Urine FEW /HPF; Protein,Urine <15 mg/dL mg/dL (Negative); RBC,Urine < 1.0 /HPF (0.0-6.0); Urobilinogen,Urine < 2.0 mg/dL (<2.0)
[2020-05-13] MEDS ORDERED: SODIUM CHLORIDE 0.9% 1000 ML 1,000 ML IV ONE (00:48)
[2020-05-13] MEDS ORDERED: LORazepam 2 MG/ML VIAL IV ONE (00:52)
[2020-05-13] MEDS ORDERED: LORazepam 2 MG TAB PO PRN ×2 (00:59)
[2020-05-13 01:32] LABS: Amphetamine Screen,Urine PRESUMPTIVE NEGATIVE; Benzodiazepines Screen,Urine PRESUMPTIVE NEGATIVE; Cannabinoid Screen,Urine PRESUMPTIVE NEGATIVE; Cocaine Screen,Urine PRESUMPTIVE NEGATIVE; Methadone Screen,Urine PRESUMPTIVE NEGATIVE; Opiate Screen,Urine PRESUMPTIVE NEGATIVE
[2020-05-13 06:33] VITALS: BP 144/95
--- NOTE | 2020-05-13 09:54 | Consultation ---
History of Present Illness - Reason for Consult Consult date: 05/13/20 Reason for consult: MHE Requesting physician: ANTONIO GOLDBERG - History of Present Psychiatric Illness Per ED Provider: 44-year-old male presents to the hospital planing of auditory and visual hallucinations, suicidal ideation with plan, and alcohol use. Patient states he wants to kill himself by shooting himself with questionable access to a weapon. He states he does have a place to live but they "do not want him there". He admits to drinking 1/5 of wine a day including prior to arrival and drinks alcohol daily. Denies history of alcohol withdrawal tremors. Patient denies drug use but states he smokes tobacco. He complains of chest pa in today without reports of shortness of breath and thinks is related to smoking. He denies cough or fever. Patient is very talkative but cooperative PSYCH HPI Patient is a 44-year-old single, unemployed -English male with past psychiatric history of paranoid disorder and intellectual disability who currently resides in a senior living presented to the ED with complaints of SI. 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 By drinking some wine and he knows that it is not good for him. Patient states that he currently resides in a senior living, reportedly feeling good today and would like to go back home. Though patient thought process appears to be disorganized and patient responding internal stimulus, I have seen patient in the past and patient has baseline intellectual disability. 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 PAST PSYCHIATRIC HISTORY Diagnoses: paranoid disorder and intellectual disability Suicide attempts or Self-harm behavior: yes Prior psychiatric hospitalizations: yes Substance Abuse history: none reported Previous psychiatric medications tried: unable to recall Outpatient treatment: yes PAST MEDICAL HISTORY: HTN Family Psychiatric History: None reported or documented SOCIAL HISTORY Marital Status: single Living Arrangements: senior living Employment Status: unemployed Access to guns/weapons: none reported Education: Have many degrees per patient History of Abuse: none reported Legal History: yes REVIEW OF SYSTEMS ROS cannot be reliably obtained from the patient MENTAL STATUS EXAMINATION General Appearance and Behavior: Age appropriate, good hygiene, wearing appropriate clothes, lying in bed, good eye contact, cooperative polite with questioning. Cooperation: Participating/engaged Psychomotor Behavior: unremarkable and within normal limits Mood: Good Affect and affective range: congruent with mood Thought Process: Circumstatial Thought Content: disorganized Speech: Normal volume, Regular rate and rhythm Intellectual Functioning: Average Suicidal Ideation: n/a Homicidal Ideation: n/a Impulse Control: Impaired Insight and Judgment: Impaired Memory: memory impaired Attention: Normal, Orientation: Alert and incoherent Assessment and Plan - Psychiatric problem (1) Outbursts of anger Current Visit: Yes Status: Acute (2) Intellectual disability Current Visit: Yes Status: Acute Treatment Plan I do not recommend inpatient, patient should follow up with his outpt psychiatric provider at this time [facility] ehe is now sober and not displaying any endangering thought content. MEDICATIONS: Risks, benefits and alternatives of medications discussed with the patient, questions answered and consent obtained from patient. PSYCHOTHERAPY: Supportive psychotherapy provided MEDICAL: Per primary team DELIRIUM PRECAUTIONS: Please re-orient patient frequently, keep lights on during the day, and minimize benzodiazepines and opiates as these medications could worsen patient's confusion. 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 Outpt F/U with his psychiatrist recommended. LEGAL STATUS: rescinded FOLLOW-UP: Will sign off Thank you for the consult. Please contact with any questions and/or concerns. Medications and Allergies Allergies Allergy/AdvReac Type Severity Reaction Status Date / Time Iodine and Iodide Containing Allergy Hives Verified 10/11/17 01:42 Produc Sulfa (Sulfonamide Allergy Hives Verified 10/11/17 01:42 Antibiotics) sulfasalazine Allergy Hives Verified 10/11/17 01:42 dye Allergy Hives Uncoded 10/11/17 01:42 lodine Allergy Hives Uncoded 10/11/17 01:42 Home Medications Medication Instructions Recorded Confirmed Last Taken Type ALBUTEROL NEB's [Proventil 0.083% 2.5 mg IH TID PRN 10/11/17 10/11/17 Unknown History NEBS] Acetaminophen [Acetaminophen TAB] 325 mg PO Q6HR PRN 10/11/17 10/11/17 Unknown History Ciclopirox 0.77% (Nf) [Loprox 10 applic TP DAILY 10/11/17 10/11/17 Unknown History 0.77% Cream] Citalopram [Celexa] 20 mg PO QDAY 10/11/17 10/11/1710/10/18 History Guaifen/Dextromethorphan/PE 15 ml PO Q6HR PRN 10/11/17 10/11/17 Unknown History [Robitussin Cough-Cold Cf Liq] Ipratropium/Albuterol Sulfate 1 ampul IH Q6HR 10/11/17 10/11/17 Unknown History [DUONEB *Not for PRN Use*] Melatonin 3 mg PO QHS 10/11/17 10/11/17 10/10/17 History Mirtazapine [Remeron 15mg TAB] 15 mg PO QHS 10/11/17 10/11/17 10/10/17 History Omeprazole Magnesium [PriLOSEC Otc] 20 mg PO QDAY 10/11/17 10/11/17 10/10/17 History levETIRAcetam [Keppra TAB] 1,000 mg PO BID 10/11/17 10/11/17 10/10/17 History Divalproex Sodium [Depakote] 500 mg PO BID #30 tablet. 10/17/17 Unknown Rx OLANZapine [Zyprexa] 10 mg PO QHS #20 tablet 10/17/17 Unknown Rx busPIRone [Buspar] 5 mg PO BID #20 tab 10/17/17 Unknown Rx Active Meds: Active Medications Lorazepam (Lorazepam 2 Mg Tab) 2 mg PO Q1HR PRN PRN Reason: CIWA-Ar 8-15 Lorazepam (Lorazepam 2 Mg Tab) 4 mg PO Q1HR PRN PRN Reason: CIWA-Ar 16-25 Potassium Chloride (Potassium Chloride Er 20 Meq Tab) 40 meq PO ONCE ONE Stop: 05/13/20 10:01 Mental Status Exam - Vital signs Last Vital Signs Temp 97.6 F 05/13/20 06:00 Pulse 96 H 05/13/20 06:00 Resp 18 05/13/20 06:00 BP 144/95 05/13/20 06:00 Pulse Ox 100 05/13/20 06:00 Results Result Diagrams: 05/12/20 20:29 05/12/20 20:29 Abnormal lab results 05/12/20 05/12/20 05/12/20 Range/Units 20:29 20:29 20:29 [place] % (Auto) 10.3 H (0.0-7.3) % Potassium 3.0 L (3.6-5.0) mmol/L Carbon Dioxide 21 L (22-30) mmol/L Glucose 124 H (75-100) mg/dL Free T4 (0.76-1.46) ng/dL Salicylates < 0.3 L (2.8-20.0) mg/dL Acetaminophen (10.0-30.0) ug/mL Plasma/Serum Alcohol (0-0.07) % 05/12/20 05/12/20 05/12/20 Range/Units 20:29 20:29 20:42 [place] % (Auto) (0.0-7.3) % Potassium (3.6-5.0) mmol/L Carbon Dioxide (22-30) mmol/L Glucose (75-100) mg/dL Free T4 1.79 H (0.76-1.46) ng/dL Salicylates (2.8-20.0) mg/dL Acetaminophen 5.0 L (10.0-30.0) ug/mL Plasma/Serum Alcohol 0.10 H (0-0.07) % All other labs normal.
[2020-05-13] MEDS ORDERED: POTASSIUM CHLORIDE ER 20 MEQ TAB PO ONE (10:00)
== END 2020-05-13 14:55 ==
LOC: ED 19:49
DX: F29 Unspecified psychosis not due to a substance or known physiological condition (principal); Z20.822 Contact with and (suspected) exposure to COVID-19; R45.851 Suicidal ideations; F20.9 Schizophrenia, unspecified; E87.6 Hypokalemia; R00.0 Tachycardia, unspecified; Z04.6 Encounter for general psychiatric examination, requested by authority; I10 Essential (primary) hypertension; F41.9 Anxiety disorder, unspecified; F17.200 Nicotine dependence, unspecified, uncomplicated; Z79.899 Other long term (current) drug therapy; Z88.8 Allergy status to other drugs, medicaments and biological substances
CPT/HCPCS: 36415; 71045; 80048; 80307; 81001; 83735; 84439; 84443; 84484; 85025; 85379; 93005; 96361; 96365; 96372; 96375; 99285; J2060; J3411; J3486; J7030; U0003; 80320; G0480